=== PATIENT | male | born 1930 | race African-American/Black ===

== ENCOUNTER 2016-07-23 12:04 | Outpatient (CLI) | payer MEDICARE ==
[2016-07-23 16:01] LABS: Anion Gap 15 mmol/L (10-20); BUN (Urea Nitrogen) 39 mg/dL (8.4-25.7); Calc. Creatinine Clearance 0 mL/min (70-130); Calcium 9.1 mg/dL (7.8-10.44); Carbon Dioxide 23 mmol/L (23-31); Chloride 101 mmol/L (98-107); Estimated GFR-MDRD 54
[2016-07-23 16:11] LABS: #Basophils 0.1 thou/uL (0.0-0.2); #Eosinphils 0.1 thou/uL (0.0-0.7); #Lymphocytes 1.4 thou/uL (1.20-3.40); #Monocytes 0.5 thou/uL (0.11-0.59); #Neutrophils 2.5 thou/uL (1.40-6.50); %Basophils 1.2 % (0.0-1.0); %Eosinophils 2.6 % (0.0-10.0); %Lymphocytes 30.9 % (21.0-51.0); Hematocrit 32.7 % (42.0-52.0); Mean Platelet Volume 8.5 fL (7.4-10.4); Red Blood Cell (RBC) Count 3.24 mill/uL (4.70-6.10); White Blood Cell (WBC) Count 4.5 thou/uL (4.8-10.8)
== END 2016-07-23 12:05 | disposition home or self-care (01) ==
LOC: NAV LABSP 12:04
PROVIDERS: ATTEND Internal Medicine
DX: I10 Essential (primary) hypertension (principal); E10.9 Type 1 diabetes mellitus without complications
CPT/HCPCS: 36415; 80048; 85025

== ENCOUNTER 2016-08-12 12:43 | Outpatient (CLI) | payer MEDICARE ==
[2016-08-12 13:52] LABS: Anion Gap 12 mmol/L (10-20); BUN (Urea Nitrogen) 43 mg/dL (8.4-25.7); Calc. Creatinine Clearance 0 mL/min (70-130); Carbon Dioxide 27 mmol/L (23-31); Chloride 108 mmol/L (98-107); Estimated GFR-MDRD 52
[2016-08-12 15:02] LABS: Band 1 % (5-11); Hematocrit 32.9 % (42.0-52.0); Mean Platelet Volume 9.5 fL (7.4-10.4); Neutrophil 63 % (42-75); Reactive Lymphocytes 1 % (0-10); Red Blood Cell (RBC) Count 3.22 mill/uL (4.70-6.10); White Blood Cell (WBC) Count 4.9 thou/uL (4.8-10.8)
== END 2016-08-12 12:44 | disposition home or self-care (01) ==
LOC: NAV LABSP 12:43
PROVIDERS: ATTEND Internal Medicine
DX: E10.9 Type 1 diabetes mellitus without complications (principal); I10 Essential (primary) hypertension
CPT/HCPCS: 36415; 80048; 85025

== ENCOUNTER 2016-09-17 10:58 | Outpatient (CLI) | payer MEDICARE ==
[2016-09-17 13:05] LABS: ALT (SGPT) 10 U/L (0-55); AST (SGOT) 11 U/L (5-34); Albumin 3.3 g/dL (3.4-4.8); Alkaline Phosphatase 55 U/L (40-150); Anion Gap 14 mmol/L (10-20); BUN (Urea Nitrogen) 44 mg/dL (8.4-25.7); Bilirubin, Direct 0.1 mg/dL (0.1-0.3); Bilirubin, Total 0.2 mg/dL (0.2-1.2); Calc. Creatinine Clearance 0 mL/min (70-130); Calcium 8.6 mg/dL (7.8-10.44); Carbon Dioxide 27 mmol/L (23-31); Cardiac Risk 6.8 (Less than 4.5); Chloride 105 mmol/L (98-107); Cholesterol 171 mg/dL (< 200 Desired); Estimated GFR-MDRD 52; Globulin 3.3 g/dL (2.4-3.5); Glucose 96 mg/dL (83-110); HDL Cholesterol 25 mg/dL (>60 Neg Risk); LDL Cholesterol, Calculated 131 mg/dL; Potassium 4.9 mmol/L (3.5-5.1); Protein, Total 6.6 g/dL (5.8-8.1); Sodium 141 mmol/L (136-145); Triglycerides 77 mg/dL (Less than 150)
[2016-09-17 13:07] LABS: Hemoglobin A1c 5.8 % (4.0-6.0)
[2016-09-17 13:42] LABS: Hemoglobin 9.7 g/dL (14.0-18.0); MDiff Complete? YES; Mean Corpuscular HGB CONC 32.8 g/dL (32.0-36.0); Mean Platelet Volume 9.9 fL (7.4-10.4); Platelet Count 133 thou/uL (130-400); RBC Distribution Width 11.8 % (11.5-14.5); Red Blood Cell (RBC) Count 2.85 mill/uL (4.70-6.10); White Blood Cell (WBC) Count 4.7 thou/uL (4.8-10.8)
[2016-09-17 13:43] LABS: Anisocytosis SLIGHT = 6-15 cells (100X) (0-5/hpf); Band 1 % (5-11); Hypochromia SLIGHT = 6-15 cells (100X) (0-5/hpf); Lymphocytes 32 % (21-51); Macrocytosis SLIGHT = 6-15 cells (100X) (0-5/hpf); Monocytes 8 % (0-10); Neutrophil 59 % (42-75); PLT Morphology Comment Appears Adequate
== END 2016-09-17 10:59 | disposition home or self-care (01) ==
LOC: NAV LABSP 10:58
PROVIDERS: ATTEND Internal Medicine
DX: E10.9 Type 1 diabetes mellitus without complications (principal); I10 Essential (primary) hypertension
CPT/HCPCS: 36415; 80053; 80061; 82248; 83036; 84443; 85025

== ENCOUNTER 2016-09-23 07:29 | Outpatient (CLI) | payer MEDICARE ==
[2016-09-23 09:44] LABS: ALT (SGPT) 10 U/L (0-55); AST (SGOT) 11 U/L (5-34); Albumin 3.4 g/dL (3.4-4.8); Alkaline Phosphatase 69 U/L (40-150); Anion Gap 15 mmol/L (10-20); BUN (Urea Nitrogen) 48 mg/dL (8.4-25.7); Bilirubin, Total 0.2 mg/dL (0.2-1.2); Calc. Creatinine Clearance 0 mL/min (70-130); Calcium 8.9 mg/dL (7.8-10.44); Carbon Dioxide 27 mmol/L (23-31); Chloride 101 mmol/L (98-107); Estimated GFR-MDRD 50; Globulin 2.9 g/dL (2.4-3.5); Glucose 91 mg/dL (83-110); Potassium 5.5 mmol/L (3.5-5.1); Protein, Total 6.3 g/dL (5.8-8.1); Sodium 137 mmol/L (136-145)
== END 2016-09-23 07:30 | disposition home or self-care (01) ==
LOC: NAV LABSP 07:29
PROVIDERS: ATTEND Internal Medicine
DX: E11.9 Type 2 diabetes mellitus without complications (principal); I10 Essential (primary) hypertension
CPT/HCPCS: 36415; 80053

== ENCOUNTER 2016-10-14 16:03 | Outpatient (CLI) | payer MEDICARE ==
[2016-10-14 19:22] LABS: Anion Gap 15 mmol/L (10-20); BUN (Urea Nitrogen) 52 mg/dL (8.4-25.7); Calc. Creatinine Clearance 0 mL/min (70-130); Calcium 8.6 mg/dL (7.8-10.44); Carbon Dioxide 23 mmol/L (23-31); Chloride 103 mmol/L (98-107); Estimated GFR-MDRD 44; Glucose 85 mg/dL (83-110); Potassium 5.4 mmol/L (3.5-5.1); Sodium 136 mmol/L (136-145)
[2016-10-14 21:42] LABS: Eosinophils 4 % (0-10); Hemoglobin 9.6 g/dL (14.0-18.0); Hypochromia SLIGHT = 6-15 cells (100X) (0-5/hpf); Lymphocytes 22 % (21-51); MDiff Complete? YES; Macrocytosis SLIGHT = 6-15 cells (100X) (0-5/hpf); Mean Corpuscular HGB CONC 32.3 g/dL (32.0-36.0); Mean Corpuscular Hemoglobin 32.4 pg (27.0-31.0); Mean Platelet Volume 10.1 fL (7.4-10.4); Monocytes 3 % (0-10); Neutrophil 70 % (42-75); PLT Morphology Comment Appears Decreased; Platelet Count 105 thou/uL (130-400); RBC Distribution Width 11.8 % (11.5-14.5); Red Blood Cell (RBC) Count 2.97 mill/uL (4.70-6.10); White Blood Cell (WBC) Count 5.9 thou/uL (4.8-10.8)
== END 2016-10-14 16:04 | disposition home or self-care (01) ==
LOC: NAV LABSP 16:03
PROVIDERS: ATTEND Internal Medicine
DX: E10.9 Type 1 diabetes mellitus without complications (principal); I10 Essential (primary) hypertension
CPT/HCPCS: 36415; 80048; 85025

== ENCOUNTER 2016-11-15 15:02 | Outpatient (CLI) | payer MEDICARE ==
[2016-11-15 16:10] LABS: Anion Gap 17 mmol/L (10-20); BUN (Urea Nitrogen) 60 mg/dL (8.4-25.7); Calc. Creatinine Clearance 0 mL/min (70-130); Calcium 8.6 mg/dL (7.8-10.44); Carbon Dioxide 21 mmol/L (23-31); Chloride 105 mmol/L (98-107); Estimated GFR-MDRD 40; Glucose 132 mg/dL (83-110); Potassium 4.9 mmol/L (3.5-5.1); Sodium 138 mmol/L (136-145)
[2016-11-15 17:11] LABS: #Eosinphils 0.1 thou/uL (0.0-0.7); #Lymphocytes 1.1 thou/uL (1.20-3.40); #Monocytes 0.5 thou/uL (0.11-0.59); #Neutrophils 2.8 thou/uL (1.40-6.50); %Basophils 0.7 % (0.0-1.0); %Eosinophils 2.5 % (0.0-10.0); %Lymphocytes 24.2 % (21.0-51.0); %Neutrophils 62.5 % (42.0-75.0); Hemoglobin 9.9 g/dL (14.0-18.0); Mean Corpuscular HGB CONC 32.4 g/dL (32.0-36.0); Mean Corpuscular Hemoglobin 32.3 pg (27.0-31.0); Mean Corpuscular Volume 99.8 fl (80.0-94.0); Mean Platelet Volume 9.4 fL (7.4-10.4); Platelet Count 107 thou/uL (130-400); RBC Distribution Width 12.1 % (11.5-14.5); Red Blood Cell (RBC) Count 3.05 mill/uL (4.70-6.10); White Blood Cell (WBC) Count 4.5 thou/uL (4.8-10.8)
== END 2016-11-15 15:03 | disposition home or self-care (01) ==
LOC: NAV LABSP 15:02
PROVIDERS: ATTEND Internal Medicine
DX: E10.9 Type 1 diabetes mellitus without complications (principal); I10 Essential (primary) hypertension
CPT/HCPCS: 80048; 85025

== ENCOUNTER 2016-12-12 10:56 | Outpatient (CLI) | payer MEDICARE ==
[2016-12-12 12:41] LABS: #Eosinphils 0.1 thou/uL (0.0-0.7); #Monocytes 0.4 thou/uL (0.11-0.59); #Neutrophils 2.8 thou/uL (1.40-6.50); %Basophils 0.7 % (0.0-1.0); %Eosinophils 2.8 % (0.0-10.0); %Lymphocytes 22.3 % (21.0-51.0); %Monocytes 9.9 % (0.0-10.0); %Neutrophils 64.3 % (42.0-75.0); Hemoglobin 9.6 g/dL (14.0-18.0); Mean Corpuscular HGB CONC 32.8 g/dL (32.0-36.0); Mean Corpuscular Hemoglobin 32.4 pg (27.0-31.0); Mean Platelet Volume 8.4 fL (7.4-10.4); Platelet Count 138 thou/uL (130-400); RBC Distribution Width 11.8 % (11.5-14.5); Red Blood Cell (RBC) Count 2.97 mill/uL (4.70-6.10); White Blood Cell (WBC) Count 4.4 thou/uL (4.8-10.8)
[2016-12-12 12:48] LABS: Anion Gap 16 mmol/L (10-20); BUN (Urea Nitrogen) 52 mg/dL (8.4-25.7); Calc. Creatinine Clearance 0 mL/min (70-130); Calcium 8.8 mg/dL (7.8-10.44); Carbon Dioxide 23 mmol/L (23-31); Chloride 104 mmol/L (98-107); Estimated GFR-MDRD 53; Glucose 99 mg/dL (83-110); Potassium 5.2 mmol/L (3.5-5.1); Sodium 138 mmol/L (136-145)
== END 2016-12-12 10:57 | disposition home or self-care (01) ==
LOC: NAV LABSP 10:56
PROVIDERS: ATTEND Internal Medicine
DX: E10.9 Type 1 diabetes mellitus without complications (principal); I10 Essential (primary) hypertension
CPT/HCPCS: 36415; 80048; 85025

== ENCOUNTER 2017-01-15 16:32 | Outpatient (CLI) | payer MEDICARE ==
[2017-01-15 21:04] LABS: Anion Gap 17 mmol/L (10-20); BUN (Urea Nitrogen) 58 mg/dL (8.4-25.7); Calc. Creatinine Clearance 0 mL/min (70-130); Calcium 8.8 mg/dL (7.8-10.44); Carbon Dioxide 21 mmol/L (23-31); Chloride 104 mmol/L (98-107); Estimated GFR-MDRD 49; Glucose 143 mg/dL (83-110); Potassium 4.8 mmol/L (3.5-5.1); Sodium 137 mmol/L (136-145)
[2017-01-15 23:11] LABS: Eosinophils 3 % (0-10); Hemoglobin 9.9 g/dL (14.0-18.0); Hypochromia SLIGHT = 6-15 cells (100X) (0-5/hpf); Lymphocytes 37 % (21-51); MDiff Complete? YES; Macrocytosis SLIGHT = 6-15 cells (100X) (0-5/hpf); Mean Corpuscular HGB CONC 31.3 g/dL (32.0-36.0); Mean Corpuscular Hemoglobin 31.5 pg (27.0-31.0); Mean Platelet Volume 8.7 fL (7.4-10.4); Monocytes 5 % (0-10); Neutrophil 55 % (42-75); PLT Morphology Comment Appears Decreased; Platelet Count 115 thou/uL (130-400); RBC Distribution Width 12.2 % (11.5-14.5); Red Blood Cell (RBC) Count 3.13 mill/uL (4.70-6.10); White Blood Cell (WBC) Count 4.9 thou/uL (4.8-10.8)
== END 2017-01-15 16:33 | disposition home or self-care (01) ==
LOC: NAV LABSP 16:32
PROVIDERS: ATTEND Internal Medicine
DX: E10.9 Type 1 diabetes mellitus without complications (principal); I10 Essential (primary) hypertension
CPT/HCPCS: 36415; 80048; 85025

== ENCOUNTER 2017-02-11 14:05 | Outpatient (CLI) | payer MEDICARE ==
[2017-02-11 16:19] LABS: Anion Gap 13 mmol/L (10-20); BUN (Urea Nitrogen) 38 mg/dL (8.4-25.7); Calc. Creatinine Clearance 0 mL/min (70-130); Calcium 8.7 mg/dL (7.8-10.44); Carbon Dioxide 26 mmol/L (23-31); Chloride 103 mmol/L (98-107); Estimated GFR-MDRD 62; Glucose 89 mg/dL (83-110); Potassium 4.6 mmol/L (3.5-5.1); Sodium 137 mmol/L (136-145)
[2017-02-11 21:15] LABS: #Eosinphils 0.1 thou/uL (0.0-0.7); #Lymphocytes 1.1 thou/uL (1.20-3.40); #Monocytes 0.6 thou/uL (0.11-0.59); #Neutrophils 2.9 thou/uL (1.40-6.50); %Eosinophils 2.5 % (0.0-10.0); %Lymphocytes 23.4 % (21.0-51.0); %Monocytes 11.8 % (0.0-10.0); %Neutrophils 61.3 % (42.0-75.0); Hemoglobin 9.9 g/dL (14.0-18.0); Mean Corpuscular HGB CONC 32.2 g/dL (32.0-36.0); Mean Corpuscular Hemoglobin 32.2 pg (27.0-31.0); Mean Corpuscular Volume 99.9 fl (80.0-94.0); Mean Platelet Volume 9.4 fL (7.4-10.4); Platelet Count 107 thou/uL (130-400); RBC Distribution Width 11.5 % (11.5-14.5); Red Blood Cell (RBC) Count 3.07 mill/uL (4.70-6.10); White Blood Cell (WBC) Count 4.7 thou/uL (4.8-10.8)
== END 2017-02-11 14:06 | disposition home or self-care (01) ==
LOC: NAV LABSP 14:05
PROVIDERS: ATTEND Internal Medicine
DX: E10.9 Type 1 diabetes mellitus without complications (principal); I10 Essential (primary) hypertension
CPT/HCPCS: 36415; 80048; 85025

== ENCOUNTER 2017-02-25 11:40 | Outpatient (CLI) | payer MEDICARE ==
[2017-02-25 13:30] LABS: Bilirubin Negative (Negative); Blood, Urine Negative (Negative); Clarity Clear (Clear); Glucose, Urine (Dipstick) Negative (Negative); Leukocyte Negative (Negative); Nitrite Negative (Negative); Protein, Urine (Dipstick) Negative (Neg-Trace); Urobilinogen 0.2 mg/dL (0.2-1.0)
[2017-02-25 13:35] LABS: Bacteria/HPF Rare-Few HPF (None Seen); RBC/HPF 0-3 HPF (0-3); Squamous Epithelial 0-3 HPF (0-3); WBC/HPF 0-3 HPF (0-3)
== END 2017-02-25 11:41 | disposition home or self-care (01) ==
LOC: NAV LABSP 11:40
PROVIDERS: ATTEND Internal Medicine
DX: R41.82 Altered mental status, unspecified (principal); I10 Essential (primary) hypertension; E10.9 Type 1 diabetes mellitus without complications
CPT/HCPCS: 81001; 87086

== ENCOUNTER 2017-02-25 12:52 | Outpatient (CLI) | payer MEDICARE, OTHER ==
--- NOTE | 2017-02-25 16:23 | CT ---
CT CHEST NONCONTRAST 02/25/17 HISTORY: Chest pain. Right upper lobe atelectasis. COMPARISON: 02/10/07 FINDINGS: There is mild atelectasis at each lung base. No lobar consolidation, parenchymal mass, pleural fluid , or pneumothorax are evident. Lack of contrast limits evaluation of the mediastinum. There are post operative changes and arterial calcifications. No bulky adenopathy is apparent. Small hiatal hernia is noted. Within the partially visualized upper abdomen, cysts are present within the liver parenchy ma. There are hyperdense stones in the dependent portion of the gallbladder lumen. IMPRESSION: 1. Mild bibasilar lung atelectasis. No obstructing lesion is apparent. 2. Atherosclerosis. 3. Cholelithiasis. POS: RUFINO
== END 2017-02-25 12:53 | disposition home or self-care (01) ==
LOC: NAV CT 12:52
PROVIDERS: ATTEND Internal Medicine
DX: J98.11 Atelectasis (principal); I10 Essential (primary) hypertension; E10.9 Type 1 diabetes mellitus without complications; I70.90 Unspecified atherosclerosis; K80.20 Calculus of gallbladder without cholecystitis without obstruction
CPT/HCPCS: 71250

== ENCOUNTER 2017-03-18 12:27 | Outpatient (CLI) | payer MEDICARE, OTHER ==
[2017-03-18 15:55] LABS: ALT (SGPT) 8 U/L (8-55); AST (SGOT) 11 U/L (5-34); Albumin 3.8 g/dL (3.4-4.8); Alkaline Phosphatase 67 U/L (40-150); Anion Gap 19 mmol/L (10-20); BUN (Urea Nitrogen) 31 mg/dL (8.4-25.7); Bilirubin, Direct 0.1 mg/dL (0.1-0.3); Bilirubin, Total 0.3 mg/dL (0.2-1.2); Calc. Creatinine Clearance 0 mL/min (70-130); Calcium 9.3 mg/dL (7.8-10.44); Carbon Dioxide 21 mmol/L (23-31); Cardiac Risk 7.1 (Less than 4.5); Chloride 103 mmol/L (98-107); Cholesterol 219 mg/dl (< 200 Desired); Estimated GFR-MDRD 58; Glucose 100 mg/dL (83-110); HDL Cholesterol 31 mg/dL (>60 Neg Risk); LDL Cholesterol, Calculated 170 mg/dL; Potassium 4.7 mmol/L (3.5-5.1); Protein, Total 7.4 g/dL (5.8-8.1); Sodium 138 mmol/L (136-145); Triglycerides 90 mg/dL (Less than 150)
[2017-03-18 17:00] LABS: Hemoglobin A1c 5.5 % (4.0-6.0)
[2017-03-18 17:11] LABS: #Eosinphils 0.1 thou/uL (0.0-0.7); #Lymphocytes 1.1 thou/uL (1.20-3.40); #Monocytes 0.5 thou/uL (0.11-0.59); #Neutrophils 3.2 thou/uL (1.40-6.50); %Eosinophils 2.3 % (0.0-10.0); %Lymphocytes 21.7 % (21.0-51.0); %Monocytes 10.9 % (0.0-10.0); %Neutrophils 64.2 % (42.0-75.0); Hemoglobin 10.8 g/dL (14.0-18.0); Mean Corpuscular HGB CONC 31.9 g/dL (32.0-36.0); Mean Platelet Volume 9.4 fL (7.4-10.4); Platelet Count 114 thou/uL (130-400); RBC Distribution Width 11.7 % (11.5-14.5); Red Blood Cell (RBC) Count 3.39 mill/uL (4.70-6.10)
== END 2017-03-18 12:28 | disposition home or self-care (01) ==
LOC: NAV LABSP 12:27
PROVIDERS: ATTEND Internal Medicine
DX: E10.9 Type 1 diabetes mellitus without complications (principal); I10 Essential (primary) hypertension
CPT/HCPCS: 36415; 80048; 80061; 80076; 83036; 84443; 85025

== ENCOUNTER 2017-05-09 14:32 | Outpatient (CLI) | payer MEDICARE, OTHER ==
[2017-05-09 15:01] LABS: Anion Gap 17 mmol/L (10-20); BUN (Urea Nitrogen) 29 mg/dL (8.4-25.7); Calc. Creatinine Clearance 0 mL/min (70-130); Calcium 8.8 mg/dL (7.8-10.44); Carbon Dioxide 23 mmol/L (23-31); Chloride 103 mmol/L (98-107); Estimated GFR-MDRD 53; Glucose 175 mg/dL (83-110); Potassium 4.5 mmol/L (3.5-5.1); Sodium 138 mmol/L (136-145)
[2017-05-09 15:26] LABS: #Eosinphils 0.2 thou/uL (0.0-0.7); #Monocytes 0.7 thou/uL (0.11-0.59); %Basophils 0.9 % (0.0-1.0); %Eosinophils 3.5 % (0.0-10.0); %Lymphocytes 20.2 % (21.0-51.0); %Monocytes 13.6 % (0.0-10.0); %Neutrophils 61.9 % (42.0-75.0); Hemoglobin 11.2 g/dL (14.0-18.0); Mean Corpuscular HGB CONC 30.9 g/dL (32.0-36.0); Mean Platelet Volume 11.2 fL (7.4-10.4); Platelet Count 115 thou/uL (130-400); RBC Distribution Width 12.4 % (11.5-14.5); White Blood Cell (WBC) Count 4.8 thou/uL (4.8-10.8)
== END 2017-05-09 14:33 | disposition home or self-care (01) ==
LOC: NAV LABSP 14:32
PROVIDERS: ATTEND Internal Medicine
DX: F32.9 Major depressive disorder, single episode, unspecified (principal); I10 Essential (primary) hypertension; E11.9 Type 2 diabetes mellitus without complications; E61.9 Deficiency of nutrient element, unspecified
CPT/HCPCS: 36415; 80048; 85025

== ENCOUNTER 2017-10-01 16:46 | Inpatient (IN) | payer MEDICARE ==
[2017-10-01] MEDS ORDERED: Acetaminophen 325 MG TAB PO PRN ×2 (17:57)
[2017-10-01] MEDS ORDERED: Loperamide HCl 2 MG CAP PO PRN (18:17)
[2017-10-01] MEDS ORDERED: Sodium Chloride 0.9% 10 ML ONE (19:00)
[2017-10-01] MEDS: Apixaban 5 MG TAB PO SCH (20:14)
[2017-10-01] MEDS: Amlodipine 10 MG TAB PO SCH (20:14)
[2017-10-01] MEDS: Simethicone Chewable 80 MG TAB PO SCH (20:15)
[2017-10-01] MEDS: Carvedilol 25 MG TAB PO SCH (20:15)
[2017-10-01 21:19] LABS: Bilirubin Negative (Negative); Blood, Urine Moderate (Negative); Glucose, Urine (Dipstick) Negative (Negative); Leukocyte Large (Negative); Nitrite Negative (Negative); Protein, Urine (Dipstick) > or equal to 300 mg/dL (Neg-Trace); Urobilinogen 0.2 mg/dL (0.2-1.0)
[2017-10-01 21:35] LABS: Bacteria/HPF 4+ HPF (None Seen); Clarity Cloudy (Clear)
[2017-10-01 21:54] VITALS: BMI 23.3
[2017-10-02 07:20] LABS: BUN (Urea Nitrogen) 39 mg/dL (8.4-25.7); Calc. Creatinine Clearance 31 mL/min (70-130); Carbon Dioxide 24 mmol/L (23-31); Chloride 108 mmol/L (98-107); Estimated GFR-MDRD 41; Potassium 5.9 mmol/L (3.5-5.1); Sodium 138 mmol/L (136-145)
[2017-10-02 07:21] LABS: Calcium 9.2 mg/dL (7.8-10.44); Glucose 76 mg/dL (83-110)
[2017-10-02 07:22] LABS: Anion Gap 12 mmol/L (10-20)
[2017-10-02 07:23] LABS: Hemoglobin 8.5 g/dL (14.0-18.0); Mean Corpuscular HGB CONC 32.6 g/dL (32.0-36.0); Mean Corpuscular Hemoglobin 32.1 pg (27.0-31.0); Mean Corpuscular Volume 98.5 fL (80.0-94.0); Mean Platelet Volume 9.1 fL (7.4-10.4); Platelet Count 125 thou/uL (130-400); RBC Distribution Width 12.8 % (11.5-14.5); Red Blood Cell (RBC) Count 2.66 mill/uL (4.70-6.10)
[2017-10-02 07:24] LABS: #Eosinphils 0.1 thou/uL (0.0-0.7); #Monocytes 0.5 thou/uL (0.11-0.59); #Neutrophils 2.3 thou/uL (1.40-6.50); %Basophils 0.8 % (0.0-1.0); %Eosinophils 2.4 % (0.0-10.0); %Lymphocytes 26.1 % (21.0-51.0); %Monocytes 12.3 % (0.0-10.0); %Neutrophils 58.4 % (42.0-75.0); Hypochromia SLIGHT = 6-15 cells (100X) (0-5/hpf); MDiff Complete? YES
[2017-10-02 07:25] LABS: PLT Morphology Comment Appears Adequate; Spherocytes SLIGHT = 1-5 cells (100X) (None Seen)
[2017-10-02] MEDS: Sodium Chloride 0.9% 1,000 ML IV SCH (08:41)
--- NOTE | 2017-10-02 10:31 | HP ---
DATE OF ADMISSION: 10/01/2017 CHIEF COMPLAINT: Resistant Escherichia coli urinary tract infection, chronic kidney disease stage 3. HISTORY OF PRESENT ILLNESS: The patient is a very pleasant 87-year-old black male living at the [facility] with multiple medical problems including coronary artery disease, peripheral vascular diseas e, hypertension with subsequent chronic kidney disease stage 3 with recent exacerbation in the hospit al several months ago for acute on chronic renal failure secondary to significant diarrhea associated with poor oral intake, this was found to be due to Clostridium difficile. He has responded to IV fl uids and he has [facility] since that time and has been forcing fluids and has had a stable creatinine around 1.4-1.7. He has had fairly good urine output, but it has been noticed to have foul-smelling urine prior to admission and subsequent culture was done, which showed E. coli wh ich was resistant to SULFA DRUGS, resistant to QUINOLONES and as he is unable to take Macrodantin sec ondary to renal function, he is only able to take IV antibiotics and therefore he is admitted to the hospital for IV gentamicin. He denies any nausea or vomiting at this time and apparently is eating f airly well. He has had no fever or chills. He has had no diarrhea output from his colostomy. The p atient does have a history of partial colectomy for cancer of the colon many years ago with colostomy . PAST MEDICAL HISTORY: Also remarkable for benign prostatic hypertrophy, severe degenerative joint di sease, distant deep venous thrombosis, pulmonary embolus with recurrence and now on prophylactic anti coagulation, recent episode of Clostridium difficile colitis, coronary artery disease. PAST SURGICAL HISTORY: Positive for coronary artery bypass surgery many years ago, above-mentioned c olostomy, left [id number] amputation. SOCIAL HISTORY: He is a , lives at the prison. He is a nonsmoker, nondrinker. FAMILY MEDICAL HISTORY: He has multiple daughters with hypertension. ALLERGIES: He has no known allergies. REVIEW OF SYSTEMS: HEENT: He denies any headaches, dizziness, change in vision or hearing, hoarsene ss or dysphagia. Pulmonary: He denies any cough, shortness of breath, chest pain or respiratory dis tress. Cardiovascular: He denies any chest pain, orthopnea, paroxysmal nocturnal dyspnea or edema. Gastrointestinal: He denies any nausea, vomiting, abdominal pain. Genitourinary: See history of present illness. He denies any dysuria, hematuria, incontinence. Musculoskeletal: He is essentially bedridden secondary to his left AKA, degenerative joint disease. He denies any significant pain. Neurologic: He denies localized numbness or weakness in arms or ex tremities, but has diffuse weakness. PHYSICAL EXAMINATION: GENERAL: Patient is an elderly black male, alert, oriented, lucid, in no distress. VITAL SIGNS: Blood pressure 134/61, O2 saturation is 96%, respirations 20, temperature is 98. HEENT: Pupils are equal, round, and react to light and accommodation. Sclerae pale, conjunctivae pa le. Oral mucous membrane slightly hydrated. NECK: Supple. There are no nodes or masses. JVP is not elevated. LUNGS: Show decreased breath sounds in the bases, but no rales or rhonchi. CARDIAC: Shows PMI in the fifth intercostal space midclavicular line and S4. No other gallops or mu rmurs. ABDOMEN: Soft, nontender with no masses or organomegaly. There is a well functioning colostomy. MUSCULOSKELETAL: Left above knee amputation. There is no edema, clubbing, cyanosis. There is marke d stiffness, decreased range of motion of joints of the hands, wrist, elbows, hips and knees. NEUROLOGIC: Cranial nerves intact. Deep tendon reflex 2+ and equal. There are absent Babinskis. LABORATORY DATA: Urinalysis did show greater than 50 white cells, 4+ bacteria and culture as mention ed above showed E. coli sensitive only to IV/IM cephalosporins and aminoglycosides. White count is 4 700, hematocrit 29, hemoglobin 9, sodium 137, potassium 6.0, chloride 106, bicarbonate 25, BUN 43, cr eatinine 1.94, GFR 40. ASSESSMENT AND PLAN: An 87-year-old black male with history of multiple medical problems including c hronic kidney disease, hypertension, coronary artery disease, peripheral vascular disease, and degene rative joint disease making him essentially bedridden, who has had problems with poor oral intake at the prison and has developed resistant urinary tract infection requiring IV antibiotics, he is unable to take Nitrofurantoin secondary to renal function and unable to take Bactrim, Cipro or oral p enicillin secondary to resistant. He will be therefore admitted to the hospital and started on IV ge ntamicin 70 mg q.24 hours, have repeat base met profile in the a.m. and started on normal saline at 5 0 mL an hour and will be continued on his previous medications of Isordil, isosorbide mononitrate for his coronary artery disease, amlodipine 10 mg daily, and carvedilol 25 twice daily for his hypertens ion and coronary artery disease, Apixaban 2.5 twice daily for cause of his recurrent pulmonary embolu s, Protonix 40 daily for recurrent reflux, peptic ulcer disease. He will have repeat urine culture d one and will obtain 7 weeks of antibiotics either IV or oral depending on repeat culture.
[2017-10-02] MEDS: Apixaban 5 MG TAB PO SCH ×2 (13:41→19:59)
[2017-10-02] MEDS: Citalopram 20 MG TAB PO SCH (13:42)
[2017-10-02] MEDS: Multivitamin W/ Minerals 1 TAB PO SCH (13:42)
[2017-10-02] MEDS: Famotidine 20 MG TAB PO SCH (13:42)
[2017-10-02] MEDS: Simethicone Chewable 80 MG TAB PO SCH ×3 (13:43→20:00)
[2017-10-02] MEDS ORDERED: Carvedilol 25 MG TAB PO SCH (13:45)
[2017-10-02] MEDS ORDERED: Apixaban 5 MG TAB PO SCH (13:45)
[2017-10-02] MEDS ORDERED: Citalopram 20 MG TAB PO SCH (13:45)
[2017-10-02] MEDS ORDERED: Famotidine 20 MG TAB PO SCH (14:00)
[2017-10-02] MEDS ORDERED: Multivitamin W/ Minerals 1 TAB PO SCH (14:00)
[2017-10-02] MEDS ORDERED: Simethicone Chewable 80 MG TAB PO SCH (14:00)
[2017-10-02] MEDS: Carvedilol 25 MG TAB PO SCH ×2 (16:46→17:37)
[2017-10-02] MEDS: Amlodipine 10 MG TAB PO SCH (19:59)
--- NOTE | 2017-10-02 20:22 | PRG ---
DATE OF SERVICE: 10/02/2017 SUBJECTIVE: The patient feels well, lying in bed, resting with no complaints of shortness of breath, chest pain, nausea, and vomiting, fever or chills. OBJECTIVE: VITAL SIGNS: Temperature is 98, pulse 72, respirations 18, O2 sats 97% on room air. LUNGS: Clear. CARDIAC: Showed regular rhythm. ABDOMEN: Soft and nontender. LABORATORY DATA: Shows white count 4000, hematocrit 26, hemoglobin 8.5. Sodium 138, potassium 5.9, chloride 108, bicarbonate 24, BUN 39, creatinine 1.89, glucose 76, calcium 9.2. Gentamicin random tr [facility] level was 0.8 on 70 mg of gentamicin daily. ASSESSMENT: 1. Resistant Escherichia coli infection on gentamicin with therapeutic level. 2. Severe peripheral vascular disease with abrasion of the toe with culture pending. We will evalua te and consult Wound Care. 3. Coronary artery disease, asymptomatic. 4. Recurrent deep venous thrombosis, controlled on Eliquis. PLAN: Increase gentamicin 80 mg daily because of therapeutic trough level. Obtain results of wound and urine culture. Continue gentle hydration and check base met profile in the a.m.
[2017-10-03] MEDS: Sodium Chloride 0.9% 1,000 ML IV SCH (05:30)
[2017-10-03 05:51] LABS: Anion Gap 13 mmol/L (10-20); BUN (Urea Nitrogen) 36 mg/dL (8.4-25.7); Calc. Creatinine Clearance 33 mL/min (70-130); Carbon Dioxide 21 mmol/L (23-31); Chloride 108 mmol/L (98-107); Estimated GFR-MDRD 44; Glucose 63 mg/dL (83-110); Sodium 136 mmol/L (136-145)
[2017-10-03] MEDS: Simethicone Chewable 80 MG TAB PO SCH ×3 (08:27→20:32)
[2017-10-03] MEDS: Apixaban 5 MG TAB PO SCH ×2 (08:27→20:31)
[2017-10-03] MEDS: Citalopram 20 MG TAB PO SCH (08:28)
[2017-10-03] MEDS: Multivitamin W/ Minerals 1 TAB PO SCH (08:28)
[2017-10-03] MEDS: Famotidine 20 MG TAB PO SCH (08:28)
[2017-10-03] MEDS: Carvedilol 25 MG TAB PO SCH ×2 (08:29→17:48)
--- NOTE | 2017-10-03 14:41 | PRG ---
DATE OF SERVICE: 10/03/2017 SUBJECTIVE: The patient feels well, lying in bed, being fed by the daughter with no complaints of sh ortness of breath, chest pain, nausea, vomiting, weakness, abdominal pain. OBJECTIVE: EXTREMITIES: Right foot shows ulcer over the first MTP joint with eschar being debrided. LUNGS: Cl ear. CARDIAC: Examination shows regular rhythm. ABDOMEN: Soft, nontender. VITAL SIGNS: Show a blood pressure of 154/68, respirations 21, O2 sats 96%, pulse 76, afebrile. LABORATORY DATA: Sodium 136, potassium 6.0, chloride 108, bicarbonate 21, BUN 36, creatinine 1.78. Microbiology shows urine culture with presumptive E. coli still growing, bacterial culture from right MTP ulcer with gram negative isaias. ASSESSMENT: 1. Escherichia coli urinary tract infection on gentamicin with therapeutic levels. No evidence of s epsis. 2. Chronic kidney disease stage 3, slowly improving with IV fluids. We will continue with persisten t hyperkalemia. 3. Decubitus ulcer over right foot with gram negative isaias growing on gentamicin with wound care appe ars to be improving. 4. Peripheral vascular disease, severe, stable. 5. Coronary artery disease, asymptomatic. PLAN: 1. Continue IV normal saline at 50 mL an hour. Repeat base met in 3 days. 2. Continue gentamicin 80 mg daily. 3. Continue wound care to right foot.
[2017-10-03] MEDS: Gentamicin Sulfate 80 MG in Premix Bag 1 BAG IVPB SCH (20:27)
[2017-10-03] MEDS: Amlodipine 10 MG TAB PO SCH (20:31)
[2017-10-04] MEDS: Sodium Chloride 0.9% 1,000 ML IV SCH ×2 (03:36→14:13)
[2017-10-04 05:37] LABS: Hemoglobin 8.5 g/dL (14.0-18.0); Platelet Count 118 thou/uL (130-400)
[2017-10-04] MEDS: Multivitamin W/ Minerals 1 TAB PO SCH (08:01)
[2017-10-04] MEDS: Citalopram 20 MG TAB PO SCH (08:01)
[2017-10-04] MEDS: Famotidine 20 MG TAB PO SCH (08:02)
[2017-10-04] MEDS: Carvedilol 25 MG TAB PO SCH ×2 (08:02→17:19)
[2017-10-04] MEDS: Apixaban 5 MG TAB PO SCH ×2 (08:02→21:01)
[2017-10-04] MEDS: Simethicone Chewable 80 MG TAB PO SCH ×3 (08:02→21:01)
--- NOTE | 2017-10-04 11:37 | PRG ---
DATE OF SERVICE: 10/04/2017 SUBJECTIVE: Mr. Zamorano is awake and not in any distress. So discussed his case with his daughter. He denies any chest pain or shortness of breath. He denies any diarrhea. He denies any fever or ch ills. OBJECTIVE: VITAL SIGNS: He is afebrile, heart rate 70, respirations 18, oxygen saturation 97% on room air, bloo d pressure was elevated at 172/81 this morning prior to his blood pressure medications. CARDIOVASCULAR: S1 and S2 plus. RESPIRATORY: Normal vesicular breath sounds. ABDOMEN: Soft, nontender, bowel sounds heard in all quadrants. EXTREMITIES: Without cyanosis or clubbing. Trace edema. LABORATORY VALUES: H&H is 8.5 and 26.6. Urinalysis showed more than 50 WBCs per high power field an d 4+ bacteria. Urine culture is growing E. coli and it is sensitive to gentamicin. IMPRESSION: 1. Escherichia coli urinary tract infection, on gentamicin. 2. Chronic kidney disease, stage 3. 3. Peripheral vascular disease, stable, but severe. 4. Coronary artery disease without angina. 5. Decubitus ulcer in his right foot. 6. Depression. 7. Hypertension, fluctuating control. 8. Significant deconditioning. PLAN: 1. Continue IV antibiotics and gentle hydration. 2. Continue home medications. 3. Wound care. 4. DVT and stress ulcer prophylaxis. He is on Eliquis. 5. Decubitus precautions. 6. Nutritional support. 7. Recheck BMP. Dr. Botello has ordered it for Friday. 8. Discussed with daughter in detail. 9. Aspiration precautions. He is supposed to be on a pureed diet with crushed medications. Discuss ed with nursing.
[2017-10-04] MEDS: Gentamicin Sulfate 80 MG in Premix Bag 1 BAG IVPB SCH (20:21)
[2017-10-04] MEDS: Amlodipine 10 MG TAB PO SCH (21:01)
[2017-10-05] MEDS: Carvedilol 25 MG TAB PO SCH ×2 (10:13→17:26)
[2017-10-05] MEDS: Citalopram 20 MG TAB PO SCH (10:13)
[2017-10-05] MEDS: Multivitamin W/ Minerals 1 TAB PO SCH (10:14)
[2017-10-05] MEDS: Famotidine 20 MG TAB PO SCH (10:14)
[2017-10-05] MEDS: Simethicone Chewable 80 MG TAB PO SCH ×3 (10:14→20:08)
[2017-10-05] MEDS: Apixaban 5 MG TAB PO SCH ×2 (10:14→20:08)
--- NOTE | 2017-10-05 11:46 | PRG ---
DATE OF SERVICE: 10/05/2017 SUBJECTIVE: Mr. Zamorano is doing the same. Denies any complaints. Discussed with nursing. He bar es any chest pain or shortness of breath. Denies any lightheadedness, dizziness. Denies any nausea, vomiting or diarrhea. OBJECTIVE: VITAL SIGNS: He is afebrile, heart rate 65, respirations 20, oxygen saturation 98% on room air, bloo d pressure 169/88. CARDIOVASCULAR SYSTEM: S1, S2 plus. RESPIRATORY SYSTEM: Normal vesicular breath sounds. ABDOMEN: Soft, nontender, bowel sounds heard in all quadrants. EXTREMITIES: Without cyanosis or clubbing. Dressing over his right foot. IMPRESSION: 1. Escherichia coli urinary tract infection responding to gentamicin. 2. Chronic kidney disease stage 3. 3. Peripheral vascular disease with ulcer in his right foot. 4. Coronary artery disease without angina. 5. Hypertension, fluctuating control. PLAN: 1. Continue gentle hydration. 2. Continue IV gentamicin. 3. Wound care. 4. DVT and stress ulcer prophylaxis, he is on Eliquis. 5. Decubitus precautions. 6. Adjust blood pressure medications. 7. Aspiration precautions. 8. Dr. Botello back tonight.
[2017-10-05] MEDS: Sodium Chloride 0.9% 1,000 ML IV SCH (12:23)
[2017-10-05] MEDS: Amlodipine 10 MG TAB PO SCH (20:08)
[2017-10-05] MEDS: Gentamicin Sulfate 80 MG in Premix Bag 1 BAG IVPB SCH (20:10)
[2017-10-05] MEDS: hydrALAZINE 10 MG TAB PO SCH (20:48)
[2017-10-05] MEDS ORDERED: hydrALAZINE 25 MG TAB PO SCH (21:00)
[2017-10-06 05:32] LABS: Hemoglobin 8.7 g/dL (14.0-18.0); Platelet Count 109 thou/uL (130-400)
[2017-10-06 05:51] LABS: Anion Gap 12 mmol/L (10-20); BUN (Urea Nitrogen) 27 mg/dL (8.4-25.7); Calc. Creatinine Clearance 42 mL/min (70-130); Calcium 8.5 mg/dL (7.8-10.44); Carbon Dioxide 20 mmol/L (23-31); Chloride 111 mmol/L (98-107); Estimated GFR-MDRD 59; Glucose 71 mg/dL (83-110); Potassium 5.6 mmol/L (3.5-5.1); Sodium 137 mmol/L (136-145)
[2017-10-06 07:27] VITALS: BP 129/60; TEMP 98.5
[2017-10-06] MEDS: Citalopram 20 MG TAB PO SCH (09:06)
[2017-10-06] MEDS: hydrALAZINE 10 MG TAB PO SCH (09:06)
[2017-10-06] MEDS: Apixaban 5 MG TAB PO SCH (09:06)
[2017-10-06] MEDS: Carvedilol 25 MG TAB PO SCH (09:06)
[2017-10-06] MEDS: Multivitamin W/ Minerals 1 TAB PO SCH (09:07)
[2017-10-06] MEDS: Simethicone Chewable 80 MG TAB PO SCH (09:07)
[2017-10-06] MEDS: Famotidine 20 MG TAB PO SCH (09:08)
--- NOTE | 2017-10-08 07:47 | DIS ---
Transferred to the skilled unit 10/06/2017. FINAL DIAGNOSES: 1. Resistant Escherichia coli urinary tract infection. 2. Coronary artery disease. 3. Peripheral vascular disease. 4. Hypertension. 5. Chronic kidney disease stage 3 with acute on chronic renal failure exacerbation recently. 6. History of Clostridium difficile colitis. 7. Degenerative joint disease. 8. History of cancer of the colon, status post partial colectomy many years ago. 9. Coronary artery disease status post coronary bypass graft many years ago. 10. History of deep venous thrombosis and pulmonary embolus with recurrence, now on prophylactic ant icoagulation. 11. Severe degenerative joint disease, status post left above knee amputation. HOSPITAL COURSE: The patient is a very pleasant 87-year-old black male living in the [facility] be cause of multiple medical problems including coronary artery disease, hypertension, chronic kidney di sease stage 3, peripheral vascular disease who was found to have an E. coli urinary tract infection w hich was resistant to sulfa drugs and quinolones and as he was unable to take Macrodantin secondary t o his chronic kidney disease stage 3 he was felt to require admission to the hospital for IV aminogly cosides as this was unable to be given at the [facility]. On admission, his blood pressure was 134 /61, O2 sat was 96%, respirations 20, pulse was 98. Lungs were clear. Cardiac examination showed re gular rhythm. Abdomen was soft and nontender. Urinalysis showed greater than 50 white cells, 4+ jl teria. Culture showing E. coli sensitive only to IV or IM cephalosporins, aminoglycosides. White count 4700, hemoglobin was 9, sodium was 137, potassium 6.0, chloride 106, bicarbonate 25, BUN 43, creatinine 1.94. He was started on gentamicin 70 mg q.24 and was found to have a therapeutic tro ugh level at this range was changed to 80 mg q.24h. He was started also on normal saline at 50 an ho ur. Continued on his Isordil, amlodipine, carvedilol, apixaban, Protonix. Repeat urine culture was done, did confirm this. He was given a prescription for 7 days of IV antibiotics. He was maintained in the acute unit on IV fluids. His renal function improved to a creatinine of 1.39 and his IV flui ds were discontinued, but he was transferred to the skilled unit for continued need for IV gentamicin 80 mg daily. He was therefore transferred to the skilled unit where he will be continued on his gen tamicin 80 mg daily. He will have serial renal function evaluation as his acute on chronic renal jessica hull appears to have stabilized and his GFR is 59 now with a creatinine of 1.39. Lungs were clear wi th no evidence of congestive heart failure as he has had this happen in the past. Vital signs were s table with discharge blood pressure of 129/60, temperature 98, pulse 69, respirations 18, O2 sats 98% . He will be followed by myself in the [facility].
--- NOTE | 2017-10-13 16:51 | PQF ---
ANANDA UMANZOR LUKE MD [id number] CLINICAL DOCUMENTATION CLARIFICATION FORM: POST DISCHARGE Addendum to original discharge summary date: ____ Late entry note date: 10/14/17 DATE: 10/13/17 ATTN: DR STOKES Please exercise your independent, professional judgment in responding to the clarification form. Clinical indicators are provided on the bottom of this form for your review Please check appropriate box(s): [x ] Pressure Ulcer: (Stage I: Erythema; Stage II: Partial thickness; Stage III : Full thickness; Stage IV: Necrosis to muscle/bone) [ x ] Location: ___right first mtp joint POA: [ ] Yes [ ] No [ ] Unable to determine Stage (I to IV): ___II____ (Left Right__X___ Bilateral N/A____ _) [ ] Location: POA: [ ] Yes [ ] No [ ] Unable to determine Stage (I to IV): (Left Right Bilateral N/A ) [ ] Location: POA: [ ] Yes [ ] No [ ] Unable to determine Stage (I to IV): (Left Right Bilateral N/A ) [ ] Gangrene present [ ] Yes [ ] ischemic gangrene [ ] gas gangrene [ X ] No [ ] No pressure ulcer diagnosis [ ] Deep tissue injury [ ] Other diagnosis [ ] Unable to determine In addition, please specify: Present on Admission (POA): [X ] Yes [ ] No [ ] Unable to determine For continuity of documentation, please document condition throughout progress notes and discharge summary. Thank You. CLINICAL INDICATORS - SIGNS / SYMPTOMS / LABS Pre-ulcer skin changes limited to persistent focal edema (Stage 1) Abrasion, blister, partial thickness skin loss involving epidermis and/or dermis (Stage 2) Full thickness skin loss involving damage or necrosis of SQ tissue. (Stage 3) Necrosis of soft tissue through to underlying muscle, tendon, or bone. (Stage 4) Purple or maroon discolored skin or blood filled blister RISK FACTORS: Immobility/ bedridden/ debility TREATMENTS: Wound care consult Chemical or mechanical wound debridement DOCUMENTATION OF "RIGHT FOOT SHOWS ULCER OVER THE FIRST MTP JOINT WITH ESCHAR BEING DEBRIDED." "DECUBITUS ULCER OVER RIGHT FOOT WITH GRAM NEGATIVE BERTHA GROWING ON GENTAMICIN WITH WOUND CARE APPEARS TO BE IMPROVING." ON PROGRESS NOTE 10/03/17 (This form is maintained as a part of the permanent medical record) 2014 [employer], [employer] All Rights Reserved [email or web address] [phone] MTDD
== END 2017-10-06 12:31 | disposition swing bed (61) | DRG 690 ==
LOC: INTOOBSV 16:46 → OBSVTOIN 16:46 → NAV ACUTE 16:46
PROVIDERS: ADMIT Internal Medicine; ATTEND Internal Medicine
DX: N39.0 Urinary tract infection, site not specified (principal); L89.892 Pressure ulcer of other site, stage 2; I73.9 Peripheral vascular disease, unspecified; N18.3 Chronic kidney disease, stage 3 (moderate); B96.20 Unspecified Escherichia coli [E. coli] as the cause of diseases classified elsewhere; Z89.612 Acquired absence of left leg above knee; Z16.29 Resistance to other single specified antibiotic; Z16.23 Resistance to quinolones and fluoroquinolones; I25.10 Atherosclerotic heart disease of native coronary artery without angina pectoris; I12.9 Hypertensive chronic kidney disease with stage 1 through stage 4 chronic kidney disease, or unspecified chronic kidney disease; N40.0 Benign prostatic hyperplasia without lower urinary tract symptoms; M19.90 Unspecified osteoarthritis, unspecified site; Z86.718 Personal history of other venous thrombosis and embolism; Z79.01 Long term (current) use of anticoagulants; Z86.711 Personal history of pulmonary embolism; F32.9 Major depressive disorder, single episode, unspecified
CPT/HCPCS: 36415; 36416; 80048; 80170; 81001; 85014; 85018; 85025; 85049; 87070; 87077; 87086; 87186; 87205; A4216; J1580; J7050

== ENCOUNTER 2017-10-06 12:15 | Inpatient (IN) | payer MEDICARE ==
[2017-10-06] MEDS ORDERED: Loperamide HCl 2 MG CAP PO PRN (17:01)
[2017-10-06] MEDS ORDERED: Acetaminophen 325 MG TAB PO PRN (17:01)
[2017-10-06] MEDS: Carvedilol 25 MG TAB PO SCH (17:07)
[2017-10-06] MEDS: Gentamicin Sulfate 80 MG in Premix Bag 1 BAG IVPB SCH (20:53)
[2017-10-06] MEDS: Apixaban 5 MG TAB PO SCH (20:55)
[2017-10-06] MEDS: Simethicone Chewable 80 MG TAB PO SCH (20:55)
[2017-10-06] MEDS: Amlodipine 10 MG TAB PO SCH (20:55)
[2017-10-06] MEDS: hydrALAZINE 10 MG TAB PO SCH (20:56)
[2017-10-07] MEDS: Carvedilol 25 MG TAB PO SCH ×2 (14:25→17:55)
[2017-10-07] MEDS: Apixaban 5 MG TAB PO SCH ×2 (14:26→20:39)
[2017-10-07] MEDS: hydrALAZINE 10 MG TAB PO SCH ×2 (14:26→20:39)
[2017-10-07] MEDS: Citalopram 20 MG TAB PO SCH (14:26)
[2017-10-07] MEDS: Famotidine 20 MG TAB PO SCH (14:26)
[2017-10-07] MEDS: Multivitamin W/ Minerals 1 TAB PO SCH (14:26)
[2017-10-07] MEDS: Simethicone Chewable 80 MG TAB PO SCH ×3 (14:26→20:39)
[2017-10-07] MEDS: Amlodipine 10 MG TAB PO SCH (20:39)
[2017-10-07] MEDS: Gentamicin Sulfate 80 MG in Premix Bag 1 BAG IVPB SCH (20:40)
--- NOTE | 2017-10-07 21:52 | PRG ---
DATE OF SERVICE: 10/07/2017 HISTORY OF PRESENT ILLNESS: This is a well-developed, well-nourished, very pleasant 87-year-old jonatan k male who was admitted to the hospital from the [facility], who developed foul-smelling urine at t he [facility]. Culture was done which revealed E. coli which was resistant to sulfa drugs resistan t to quinolones. He is unable to take Macrodantin for his poor renal function and was only able to t lien IV antibiotics and was admitted to the hospital for IV gentamicin. SUBJECTIVE: The patient states he is doing very well, tolerating his medication well and has no comp laints today. He states he is eating very well. Denies any fever, chills, and denies any diarrhea. PHYSICAL EXAMINATION: VITAL SIGNS: Today reveal blood pressure this morning of 107/55, pulse 70-75, respirations 17-20, O2 sat 96-99% on room air, T-max 99.4. GENERAL: This is a well-developed, well-nourished, somewhat obese black male, in no apparent distres s at this time. He states he is doing well and has no complaints. HEENT: Reveals normocephalic, nontraumatic cranium. Pupils equal, round, and reactive. Extraocular movements intact. Nose and throat are somewhat dry but clear. NECK: Supple, without mass, nodes, or bruits. CHEST: Clear to auscultation. No rales, no rhonchi, no wheezes are heard. No cough is noted. HEART: Reveals a regular rate and rhythm without murmurs, gallops, or rubs. ABDOMEN: Obese, soft, nontender, without organomegaly. Colostomy is functioning well. GENITOURINARY: Deferred. EXTREMITIES: Reveal no clubbing, cyanosis. His right foot is still dressed. LABORATORY DATA: Yesterday revealed hemoglobin 8.7, hematocrit 27.3, platelet count of 109,000. Sod ium is 137, potassium 5.6, which is down from 6.0 two days ago. Chloride 111, carbon dioxide 20 with a BUN of 27 and creatinine decreased down from 1.89 down to 1.39. GFR is up from 41-59. IMPRESSION: 1. Escherichia coli infection responding well to gentamicin. 2. Chronic kidney disease, stage 3, much improved. 3. Peripheral vascular disease with ulcer on the right foot. 4. Coronary artery disease without angina. 5. Hypertension. 6. Generalized weakness. PLAN: 1. Continue gently hydrate the patient. 2. Continue IV gent with pharmacy dosing and following the gent levels. 3. Continue with wound care. 4. Stress ulcer prophylaxis. 5. DVT prophylaxis. 6. Decubitus precautions. 7. Adjust pressure medications as needed. 8. Aspiration precautions. 9. Continue therapy.
[2017-10-08] MEDS: Multivitamin W/ Minerals 1 TAB PO SCH (07:42)
[2017-10-08] MEDS: Apixaban 5 MG TAB PO SCH ×2 (07:43→20:43)
[2017-10-08] MEDS: Citalopram 20 MG TAB PO SCH (07:43)
[2017-10-08] MEDS: Simethicone Chewable 80 MG TAB PO SCH ×3 (07:44→20:43)
[2017-10-08] MEDS: hydrALAZINE 10 MG TAB PO SCH ×2 (07:45→20:42)
[2017-10-08] MEDS: Famotidine 20 MG TAB PO SCH (07:45)
[2017-10-08] MEDS: Carvedilol 25 MG TAB PO SCH ×2 (07:45→17:37)
[2017-10-08] MEDS: Gentamicin Sulfate 80 MG in Premix Bag 1 BAG IVPB SCH (20:40)
[2017-10-08] MEDS: Amlodipine 10 MG TAB PO SCH (20:43)
--- NOTE | 2017-10-08 21:13 | PRG ---
DATE OF SERVICE: 10/08/2017 HISTORY OF PRESENT ILLNESS: Mr. Zamorano is a very pleasant 87-year-old black male admitted to the [facility] the [facility] with an E. coli resistant urinary tract infection, resistant to sulfa dr luis, quinolones. The patient is unable to take Macrodantin, so he was started on IV gentamicin. SUBJECTIVE: The patient is awake and alert today. He states he is doing well and has no complaints. He states he has no fever, chills, and feels okay. His daughter is in the room, and we answered al l of her questions. PHYSICAL EXAMINATION: VITAL SIGNS: Today reveal blood pressure this morning 146/65, pulse 68, respirations 20, O2 saturati on 97% on room air, T-max 97.7. No labs are done today. GENERAL: This is a well-developed, well-nourished, very pleasant black male in no apparent distress at this time. HEENT: Reveals normocephalic, nontraumatic cranium. Pupils are equally round and reactive. Nose an d throat are slightly dry. NECK: Supple, without mass, nodes or bruits. LUNGS: Chest is clear to auscultation. No rales, rhonchi or wheezes are heard. No cough is heard t [place]. CARDIOVASCULAR: Reveals a regular rate and rhythm without murmurs, gallops or rubs. ABDOMEN: Obese, soft, nontender, without organomegaly. Colostomy noted to be still functioning well . : Deferred. EXTREMITIES: Reveal no clubbing, cyanosis or edema. Right foot is covered with sterile dressings. IMPRESSION: 1. Escherichia coli resistant to SULFA and QUINOLONES, presently responding well to gentamicin. 2. Chronic kidney disease stage 3, much improved. 3. Peripheral vascular disease with also in the right foot. 4. Coronary artery disease without angina. 5. Hypertension. 6. Generalized weakness. PLAN: 1. Gently hydrate the patient. 2. Continue IV gentamicin with pharmacy dosing and following the gentamicin levels. 3. Continue with wound care. 4. Stress ulcer prophylaxis. 5. Decubitus precautions. 6. Deep venous thrombosis prophylaxis. 7. Continue to monitor the patient's blood pressure medication. 8. Aspiration precautions. 9. Continue present therapy.
[2017-10-09 05:38] LABS: #Eosinphils 0.1 thou/uL (0.0-0.7); #Lymphocytes 1.2 thou/uL (1.20-3.40); #Monocytes 0.5 thou/uL (0.11-0.59); #Neutrophils 3.1 thou/uL (1.40-6.50); %Basophils 0.6 % (0.0-1.0); %Eosinophils 2.2 % (0.0-10.0); %Lymphocytes 24.1 % (21.0-51.0); %Monocytes 9.7 % (0.0-10.0); %Neutrophils 63.3 % (42.0-75.0); Hemoglobin 8.6 g/dL (14.0-18.0); Mean Corpuscular HGB CONC 31.1 g/dL (32.0-36.0); Mean Corpuscular Hemoglobin 30.7 pg (27.0-31.0); Mean Corpuscular Volume 98.9 fl (80.0-94.0); Mean Platelet Volume 8.2 fL (7.4-10.4); Platelet Count 113 thou/uL (130-400); RBC Distribution Width 12.9 % (11.5-14.5); Red Blood Cell (RBC) Count 2.81 mill/uL (4.70-6.10); White Blood Cell (WBC) Count 4.9 thou/uL (4.8-10.8)
[2017-10-09 05:41] LABS: MDiff Complete? YES; Manual Diff?? NO
[2017-10-09 05:52] LABS: ALT (SGPT) 10 U/L (8-55); AST (SGOT) 13 U/L (5-34); Albumin 3.3 g/dL (3.4-4.8); Alkaline Phosphatase 51 U/L (40-150); Anion Gap 12 mmol/L (10-20); BUN (Urea Nitrogen) 43 mg/dL (8.4-25.7); Bilirubin, Total 0.1 mg/dL (0.2-1.2); Calc. Creatinine Clearance 34 mL/min (70-130); Calcium 8.7 mg/dL (7.8-10.44); Carbon Dioxide 20 mmol/L (23-31); Chloride 110 mmol/L (98-107); Estimated GFR-MDRD 46; Globulin 3.1 g/dL (2.4-3.5); Glucose 109 mg/dL (83-110); Potassium 5.4 mmol/L (3.5-5.1); Protein, Total 6.4 g/dL (5.8-8.1); Sodium 137 mmol/L (136-145)
[2017-10-09] MEDS: Multivitamin W/ Minerals 1 TAB PO SCH (09:00)
[2017-10-09] MEDS: Apixaban 5 MG TAB PO SCH ×2 (09:00→21:13)
[2017-10-09] MEDS: Carvedilol 25 MG TAB PO SCH ×2 (09:00→16:11)
[2017-10-09] MEDS: Famotidine 20 MG TAB PO SCH (09:00)
[2017-10-09] MEDS: Citalopram 20 MG TAB PO SCH (09:01)
[2017-10-09] MEDS: Simethicone Chewable 80 MG TAB PO SCH ×3 (09:01→21:12)
[2017-10-09] MEDS: hydrALAZINE 10 MG TAB PO SCH ×2 (09:37→21:12)
--- NOTE | 2017-10-09 19:09 | PRG ---
DATE OF SERVICE: 10/09/2017 DATE OF ADMISSION: 10/06/2017 HISTORY OF PRESENT ILLNESS: Mr. Zamroano is a very pleasant 87-year-old white male admitted in the [facility] from the shelter with a resistant E. coli infection. He was started on IV gentamicin and is being followed by pharmacy. SUBJECTIVE: The patient states he is doing well. He is awake and alert today. He is eating fairly well. He has no complaints today. PHYSICAL EXAMINATION: VITAL SIGNS: Reveal blood pressure this morning was 146/67, pulse 72, respirations 22, O2 sat 96% on room air, and T-max 98.4. GENERAL: This is a well-developed, well-nourished, slightly obese, pleasant black male in no apparen t distress at this time. HEENT: Reveals normocephalic, nontraumatic cranium. Pupils are equal, round, and reactive. Extraoc ular movements intact. Nose and throat are slightly dry, but clear. NECK: Supple, without mass, nodes or bruits. LUNGS: Chest is clear. No rales or rhonchi are heard. No wheezing or cough is heard. HEART: Reveals a regular rate and rhythm. No murmurs, gallops or rubs are noted. ABDOMEN: Obese, soft, nontender, without organomegaly, normal bowel sounds are noted. Colostomy is noted to be functioning still very well. GENITOURINARY: Deferred. EXTREMITIES: Reveal no clubbing, cyanosis or edema. Right foot is still dressed and covered. LABORATORY DATA: Reveal white count 4,900 with hemoglobin 8.6, hematocrit 27.8 and platelet count of 113,000. Sodium is 137, potassium 5.4, chloride 110, carbon dioxide 20 with BUN 43, creatinine 1.71. Liver en zymes are within normal limits. IMPRESSION: 1. Escherichia coli resistant to SULFA and QUINOLONES, presently responding well to gentamicin. 2. Chronic kidney disease stage 3, much improved. 3. Peripheral vascular disease with ulcer on the right foot. 4. Coronary artery disease without angina. 5. Hypertension. 6. Generalized weakness. PLAN: 1. Continue IV gentamicin with pharmacy dosing and following gentamicin levels. 2. Continue wound care. 3. Stress ulcer prophylaxis. 4. Decubitus precautions. 5. Deep venous thrombosis prophylaxis. 6. Continue to monitor the patient's blood pressure closely. 7. Aspiration precautions. 8. Continue PT and OT.
[2017-10-09] MEDS: Gentamicin Sulfate 80 MG in Premix Bag 1 BAG IVPB SCH (21:06)
[2017-10-09] MEDS: Amlodipine 10 MG TAB PO SCH (21:12)
--- NOTE | 2017-10-10 07:54 | PRG ---
DATE OF SERVICE: 10/10/2017 HISTORY OF PRESENT ILLNESS: This patient is an 87-year-old, very pleasant black male patient of Dr. Botello'conrado initially admitted to the hospital from the alf with a resistant E. coli. It was resistant to sulfa drugs and quinolones. He is unable to take Macrodantin because of his poor renal function. He was started on IV gentamicin. He was transferred to swing bed for continued IV antibi otics and for physical therapy and occupational therapy. SUBJECTIVE: The patient this morning, states he is doing well. He is waiting for his breakfast. He states he is eating fairly well and denies any fever, chills, or any significant pain. He denies an y diarrhea. He states he is doing well and looking forward to continuing his antibiotics we can get better and go back to the alf. VITAL SIGNS: Vital signs this morning reveal blood pressure 146/67, pulse 71-72, respirations 20, T- max 98.8. PHYSICAL EXAMINATION: GENERAL: This is a well-developed, well-nourished, very pleasant black male in no apparent distress at this time. HEENT: Reveals normocephalic, nontraumatic cranium. Pupils equal, round, and reactive. Extraocular movements intact. Nose and throat slightly dry, but clear. NECK: Supple, without mass, nodes or bruits. No jugular venous distention is noted today. LUNGS: Chest is clear to auscultation. No rales, rhonchi or wheezes are heard. No cough is heard t [place]. CARDIOVASCULAR: Reveals a regular rate and rhythm without murmurs, gallops or rubs. ABDOMEN: Obese, soft, nontender, without organomegaly. Colostomy left lower quadrant is functioning well. : Deferred. EXTREMITIES: Reveal no clubbing, cyanosis or edema. Dressing still covering his right foot. LABORATORY: Labs yesterday revealed white count 4900 with hemoglobin 8.6, hematocrit 27.8 and a plat elet count of 113,000. Sodium was 137, potassium 5.4, although he is not getting potassium, chloride 110, carbon dioxide 20 with a BUN 43, creatinine 1.73, which goes up and down between 1.39 and 1.94. So this is about his normal. IMPRESSION: 1. Escherichia coli resistant to sulfa and quinolones, presently responding to gentamicin. 2. Chronic kidney disease stage 3. 3. Peripheral vascular disease with ulcer on the right foot. 4. Coronary artery disease without angina. 5. Hypertension. 6. Generalized weakness. PLAN: 1. Continue IV gentamicin with pharmacy dosing and following gentamicin levels. 2. Continue wound care. 3. Continue following the patient's electrolytes. 4. Stress ulcer prophylaxis. 5. Decubitus precautions. 6. Deep venous thrombosis prophylaxis. 7. Continue to monitor the patient's blood pressure closely. 8. Aspiration precautions. 9. Continue physical therapy and occupational therapy.
[2017-10-10] MEDS: hydrALAZINE 10 MG TAB PO SCH ×2 (08:22→20:53)
[2017-10-10] MEDS: Famotidine 20 MG TAB PO SCH (08:23)
[2017-10-10] MEDS: Citalopram 20 MG TAB PO SCH (08:23)
[2017-10-10] MEDS: Apixaban 5 MG TAB PO SCH ×2 (08:24→20:54)
[2017-10-10] MEDS: Carvedilol 25 MG TAB PO SCH ×2 (08:24→16:52)
[2017-10-10] MEDS: Simethicone Chewable 80 MG TAB PO SCH ×3 (08:25→20:54)
[2017-10-10] MEDS: Multivitamin W/ Minerals 1 TAB PO SCH (08:25)
[2017-10-10] MEDS: Gentamicin Sulfate 80 MG in Premix Bag 1 BAG IVPB SCH (20:53)
[2017-10-10] MEDS: Amlodipine 10 MG TAB PO SCH (20:54)
[2017-10-11 06:34] LABS: Hemoglobin 8.5 g/dL (14.0-18.0); Platelet Count 108 thou/uL (130-400)
--- NOTE | 2017-10-11 07:27 | PRG ---
DATE OF SERVICE: 10/11/2017 HISTORY OF PRESENT ILLNESS: Mr. Le is a very pleasant 87-year-old white male, patient of Dr. Boris ferguson who was admitted to the hospital with resistant E. coli. It was resistant to both QUINOLONES a nd SULFA DRUGS. Unfortunately, his renal insufficiency will not allow to use Macrodantin. He was st arted on IV gentamicin and was transferred to swing bed for continued IV antibiotics for physical the rapy and occupational therapy. SUBJECTIVE: The patient states he is doing well this morning. He is being changed at this time. He states he is hungry and ready for some breakfast. He has no complaints today. PHYSICAL EXAMINATION: VITAL SIGNS: Blood pressure this morning reveals 123/59, pulse 67-74, respirations 18-20, O2 sat 98% on room air, T-max 98.4. GENERAL: This is a well-developed, well-nourished, very pleasant, somewhat obese black male in no ap parent distress at this time. HEENT: Reveals normocephalic, nontraumatic cranium. Pupils equal, round, and reactive. Extraocular movements intact. Nose and throat are slightly dry. NECK: Supple, without mass, nodes or bruits. LUNGS: Chest is clear to auscultation. No rales, rhonchi, wheezes or cough is heard. CARDIOVASCULAR: Heart reveals a regular rate and rhythm without murmurs, gallops or rubs. ABDOMEN: Obese, soft, nontender, without organomegaly. Colostomy in left lower quadrant is noted fu nctioning well. GENITOURINARY: Deferred. EXTREMITIES: Reveal no clubbing, cyanosis or edema. Dressings on his right great toe are intact and not draining much. LABORATORY DATA: Today reveals hemoglobin 8.5, hematocrit 27.1, platelet count 108,000. IMPRESSION: 1. Escherichia coli resistant urinary tract infection, presently on gentamicin. 2. Chronic kidney disease stage 3. 3. Peripheral vascular disease with ulcer of the right foot. 4. Coronary artery disease without angina. 5. Hypertension. 6. Generalized weakness. PLAN: 1. Continue IV gentamicin with pharmacy dosing and follow gentamicin levels. 2. Continue wound care. 3. Follow the patient's electrolytes. 4. Stress ulcer prophylaxis. 5. Decubitus precautions. 6. Dav venous thrombosis prophylaxis. 7. We will continue to monitor the patient'is blood pressure closely. 8. Aspiration precautions. 9. We will continue PT and OT. i
[2017-10-11] MEDS: hydrALAZINE 10 MG TAB PO SCH ×2 (08:56→21:40)
[2017-10-11] MEDS: Citalopram 20 MG TAB PO SCH (08:57)
[2017-10-11] MEDS: Apixaban 5 MG TAB PO SCH ×2 (08:57→21:41)
[2017-10-11] MEDS: Simethicone Chewable 80 MG TAB PO SCH ×3 (08:58→21:43)
[2017-10-11] MEDS: Carvedilol 25 MG TAB PO SCH ×2 (08:58→15:56)
[2017-10-11] MEDS: Famotidine 20 MG TAB PO SCH (08:58)
[2017-10-11] MEDS: Multivitamin W/ Minerals 1 TAB PO SCH (08:58)
[2017-10-11] MEDS ORDERED: Gentamicin Sulfate 80 MG in Premix Bag 1 BAG IVPB SCH (21:00)
[2017-10-11] MEDS: Amlodipine 10 MG TAB PO SCH (21:41)
[2017-10-12 05:11] VITALS: BMI 20.7
[2017-10-12] MEDS: hydrALAZINE 10 MG TAB PO SCH ×2 (07:56→21:54)
[2017-10-12] MEDS: Apixaban 5 MG TAB PO SCH ×2 (07:58→21:55)
[2017-10-12] MEDS: Multivitamin W/ Minerals 1 TAB PO SCH (07:58)
[2017-10-12] MEDS: Citalopram 20 MG TAB PO SCH (07:59)
[2017-10-12] MEDS: Famotidine 20 MG TAB PO SCH (07:59)
[2017-10-12] MEDS: Carvedilol 25 MG TAB PO SCH ×2 (08:00→16:40)
[2017-10-12] MEDS: Simethicone Chewable 80 MG TAB PO SCH ×3 (08:00→21:55)
[2017-10-12] MEDS: Amlodipine 10 MG TAB PO SCH (21:55)
--- NOTE | 2017-10-12 22:21 | PRG ---
DATE OF ADMISSION: 10/06/2017 DATE OF SERVICE: 10/12/2017 HISTORY OF PRESENT ILLNESS: Mr. Zamorano is a very pleasant 87-year-old white male that was admitted to the hospital with resistant E. coli, resistant to the quinolones and sulfa drugs and the patient w as renal insufficiency, is not able to have Macrodantin. The patient was started on gentamicin and w as transferred to swing bed for continued IV antibiotics for physical therapy and occupational therap y. SUBJECTIVE: The patient has no complaints today. He states he is doing very well. He is hungry and eating fair. He has no complaints. His daughter checks on him frequently. OBJECTIVE: VITAL SIGNS: Reveal blood pressure this morning 155/67, pulse 70-67, respirations 20-21, O2 sat 94% to 97% on room air, T-max 99.3, blood pressure this evening is 131/69. GENERAL: This is a well-developed, well-nourished, very pleasant black male, in no apparent distress at this time. HEENT: Reveals normocephalic, nontraumatic cranium. Pupils are equal, round, and reactive. Extraoc ular movements are intact. Nose and throat are dry. NECK: Supple, without mass, nodes or bruits. LUNGS: Chest is clear to auscultation, but distant. No rales, no rhonchi, no wheezes are heard. Th e patient does not have a cough today. CARDIOVASCULAR: Heart reveals a regular rate and rhythm. No murmurs, gallops or rubs are noted. ABDOMEN: Obese, soft, nontender. Colostomy in the left lower quadrant is functioning well. No rebo und or guarding is noted. : Deferred. EXTREMITIES: Reveal no clubbing, cyanosis or edema. Dressings on his right great toe still intact, not draining much. LABORATORY DATA: Reveal hemoglobin 8.5, hematocrit 27.1, platelet count 108,000. Creatinine is 1.81 . GFR is 44. The patient's random gentamicin level today was 1.4, yesterday 1.8, day before 2.2 and gentamicin trough was 3.1. IMPRESSION: 1. Escherichia coli resistant urinary tract infection, presently on gentamicin. 2. Chronic kidney disease, stage 3. 3. Peripheral vascular disease with ulcer on the right foot. 4. Coronary artery disease without angina. 5. Hypertension. 6. Generalized weakness. PLAN: 1. Continue IV gentamicin with pharmacy dosing and following the gentamicin levels. 2. Continue wound care. 3. Follow the patient's electrolytes. 4. Stress ulcer prophylaxis. 5. Decubitus precautions. 6. Deep venous thrombosis. 7. Continue to monitor the patient's blood pressure closely. 8. Aspiration precautions. 9. Continue physical therapy and occupational therapy.
[2017-10-13 05:43] LABS: Hemoglobin 8.1 g/dL (14.0-18.0); Platelet Count 109 thou/uL (130-400)
[2017-10-13 07:05] VITALS: BP 174/82; TEMP 97.1
[2017-10-13] MEDS: Simethicone Chewable 80 MG TAB PO SCH (07:49)
[2017-10-13] MEDS: Carvedilol 25 MG TAB PO SCH (07:49)
[2017-10-13] MEDS: hydrALAZINE 10 MG TAB PO SCH (07:49)
[2017-10-13] MEDS: Citalopram 20 MG TAB PO SCH (07:50)
[2017-10-13] MEDS: Multivitamin W/ Minerals 1 TAB PO SCH (07:50)
[2017-10-13] MEDS: Apixaban 5 MG TAB PO SCH (07:51)
[2017-10-13] MEDS: Famotidine 20 MG TAB PO SCH (07:51)
--- NOTE | 2017-10-13 10:38 | DIS ---
FINAL DIAGNOSES: 1. Resistant Escherichia coli urinary tract infection, resolved after IV gentamicin 2. Chronic kidney disease stage 3 with exacerbation with dehydration, but then resolution with IV fl uids and stable on discharge with a GFR of 39, creatinine 1.96. 3. Degenerative joint disease. 4. Peripheral vascular disease, status post left above the knee amputation. 5. Congestive heart failure with no evidence for recurrence. 6. Coronary disease, no evidence of exacerbation. HOSPITAL COURSE: The patient is a very pleasant 87-year-old black male living in a [facility] use of multiple problems who was admitted to the [facility] acute unit because of a resistant Escherichia coli urinary tract infection, started on gentamicin and IV fluids and tolerated 80 mg of gentamicin daily with therapeutic trough levels 0.9-1.8. He received a full 10 day course of IV gentamicin. Hi s renal function improved and then stabilized off of IV fluids. He was eating well, and was tolerati ng nectar thickened diet will be continued on this at the [facility]. He had no evidence of conges tive heart failure or angina during his hospitalization. His blood pressure had remained stable from 146-155 until the date of discharge, but then was repeated and was back at this level, temperature w as 97, respirations 21, O2 saturation was 93%. Most recent laboratories on discharge showed a sodium 137, potassium 5.4, chloride 110, bicarbonate 20, BUN 43, creatinine 1.96, glucose 109, hemoglobin 8 .1, hematocrit 26, platelet 109. He will be followed back at the [facility] by myself. He will be continued on his Tylenol as neede d, Norvasc 10 nightly, apixaban 2.5 twice daily, carvedilol 25 twice daily, citalopram 10 mg daily, f amotidine 20 daily, hydralazine 25 mg twice daily, isosorbide mononitrate 60 mg daily, pantoprazole 4 0 mg nightly, simethicone 80 mg p.o. 3 times daily. He will have repeat base met profile and urinaly sis done next week for followup.
== END 2017-10-13 12:00 | DRG 690 ==
LOC: NAV ACUTE 12:15
PROVIDERS: ADMIT Internal Medicine; ATTEND Internal Medicine
DX: N39.0 Urinary tract infection, site not specified (principal); I73.9 Peripheral vascular disease, unspecified; N18.3 Chronic kidney disease, stage 3 (moderate); B96.20 Unspecified Escherichia coli [E. coli] as the cause of diseases classified elsewhere; Z16.23 Resistance to quinolones and fluoroquinolones; Z16.29 Resistance to other single specified antibiotic; I25.10 Atherosclerotic heart disease of native coronary artery without angina pectoris; I12.9 Hypertensive chronic kidney disease with stage 1 through stage 4 chronic kidney disease, or unspecified chronic kidney disease; Z93.3 Colostomy status
CPT/HCPCS: 36415; 80053; 80170; 82565; 85014; 85018; 85025; 85049; A4216; J1580

== ENCOUNTER 2017-10-30 18:59 | Emergency (ER) | payer MEDICARE, OTHER ==
[2017-10-30] MEDS ORDERED: Sodium Chloride 0.9% 500 ML ONE (19:25)
[2017-10-30 19:33] LABS: #Basophils 0.1 thou/uL (0.0-0.2); #Eosinphils 0.1 thou/uL (0.0-0.7); #Lymphocytes 0.9 thou/uL (1.20-3.40); #Monocytes 0.4 thou/uL (0.11-0.59); #Neutrophils 3.3 thou/uL (1.40-6.50); %Basophils 1.3 % (0.0-1.0); %Eosinophils 1.3 % (0.0-10.0); %Monocytes 7.4 % (0.0-10.0); Hemoglobin 8.6 g/dL (14.0-18.0); Mean Corpuscular HGB CONC 30.7 g/dL (32.0-36.0); Mean Corpuscular Hemoglobin 30.6 pg (27.0-31.0); Mean Corpuscular Volume 99.9 fl (80.0-94.0); Mean Platelet Volume 8.9 fL (7.4-10.4); Platelet Count 178 thou/uL (130-400); RBC Distribution Width 13.2 % (11.5-14.5); Red Blood Cell (RBC) Count 2.82 mill/uL (4.70-6.10); White Blood Cell (WBC) Count 4.7 thou/uL (4.8-10.8)
[2017-10-30 19:39] LABS: ALT (SGPT) 23 U/L (8-55); AST (SGOT) 21 U/L (5-34); Albumin 3.5 g/dL (3.4-4.8); Alkaline Phosphatase 53 U/L (40-150); Anion Gap 15 mmol/L (10-20); BUN (Urea Nitrogen) 51 mg/dL (8.4-25.7); Bilirubin, Total 0.3 mg/dL (0.2-1.2); Calc. Creatinine Clearance 0 mL/min (70-130); Calcium 9.4 mg/dL (7.8-10.44); Carbon Dioxide 23 mmol/L (23-31); Chloride 105 mmol/L (98-107); Estimated GFR-MDRD 28; Globulin 3.8 g/dL (2.4-3.5); Glucose 110 mg/dL (83-110); Protein, Total 7.3 g/dL (5.8-8.1); Sodium 135 mmol/L (136-145)
[2017-10-30 19:48] LABS: Potassium 7.9 mmol/L (3.5-5.1)
[2017-10-30] MEDS ORDERED: Insulin Regular 300 UNITS/3 ML VIAL ONE (19:50)
[2017-10-30] MEDS ORDERED: Dextrose 50% Abboject 50 ML SYRINGE ONE (19:50)
[2017-10-30] MEDS ORDERED: Sodium Chloride 0.9% 1,000 ML ONE (20:09)
[2017-10-30] MEDS ORDERED: Calcium Chloride 1 GM/10 ML Abboject SYRINGE ONE (20:10)
[2017-10-30] MEDS ORDERED: Sodium Bicarb 50 MEQ/50 ML Abboject 8.4% SYRINGE ONE (20:10)
== END 2017-10-30 21:29 | disposition short-term general hospital (02) ==
LOC: NAV ERS 18:59
DX: E87.5 Hyperkalemia (principal); N17.9 Acute kidney failure, unspecified; F03.90 Unspecified dementia, unspecified severity, without behavioral disturbance, psychotic disturbance, mood disturbance, and anxiety; E78.5 Hyperlipidemia, unspecified; I25.10 Atherosclerotic heart disease of native coronary artery without angina pectoris; I10 Essential (primary) hypertension; N40.0 Benign prostatic hyperplasia without lower urinary tract symptoms; Z87.891 Personal history of nicotine dependence
CPT/HCPCS: 36416; 85025; 93005; 96361; 96365; 96375; J1815; J7050

== ENCOUNTER 2017-11-10 14:17 | Outpatient (CLI) | payer MEDICARE ==
[2017-11-10 14:58] LABS: Anion Gap 16 mmol/L (10-20); BUN (Urea Nitrogen) 36 mg/dL (8.4-25.7); Calc. Creatinine Clearance 0 mL/min (70-130); Calcium 8.6 mg/dL (7.8-10.44); Carbon Dioxide 23 mmol/L (23-31); Chloride 104 mmol/L (98-107); Estimated GFR-MDRD 35; Glucose 159 mg/dL (83-110); Potassium 5.9 mmol/L (3.5-5.1); Sodium 137 mmol/L (136-145)
== END 2017-11-10 14:18 | disposition home or self-care (01) ==
LOC: NAV LABSP 14:17
PROVIDERS: ATTEND Internal Medicine Nephrology
DX: I73.9 Peripheral vascular disease, unspecified (principal); E10.9 Type 1 diabetes mellitus without complications; I10 Essential (primary) hypertension
CPT/HCPCS: 36415; 80048

== ENCOUNTER 2017-11-13 15:30 | Outpatient (CLI) | payer MEDICARE ==
[2017-11-13 17:02] LABS: Anion Gap 15 mmol/L (10-20); BUN (Urea Nitrogen) 34 mg/dL (8.4-25.7); Calc. Creatinine Clearance 0 mL/min (70-130); Calcium 8.7 mg/dL (7.8-10.44); Carbon Dioxide 22 mmol/L (23-31); Chloride 102 mmol/L (98-107); Estimated GFR-MDRD 38; Glucose 127 mg/dL (83-110); Potassium 6.5 mmol/L (3.5-5.1); Sodium 132 mmol/L (136-145)
[2017-11-13 19:08] LABS: Follow-up Chemistry Comp? YES
[2017-11-13 19:09] LABS: Follow-up Result - Chemistry REPORT FAXED
== END 2017-11-13 15:31 | disposition home or self-care (01) ==
LOC: NAV LABSP 15:30
PROVIDERS: ATTEND Internal Medicine
DX: E10.9 Type 1 diabetes mellitus without complications (principal); I10 Essential (primary) hypertension
CPT/HCPCS: 36415; 80048

== ENCOUNTER 2017-11-13 21:57 | Emergency (ER) | payer MEDICARE, OTHER ==
[2017-11-13 22:44] LABS: ALT (SGPT) 12 U/L (8-55); AST (SGOT) 12 U/L (5-34); Albumin 3.8 g/dL (3.4-4.8); Alkaline Phosphatase 70 U/L (40-150); Anion Gap 15 mmol/L (10-20); BUN (Urea Nitrogen) 32 mg/dL (8.4-25.7); Bilirubin, Total 0.2 mg/dL (0.2-1.2); Calc. Creatinine Clearance 0 mL/min (70-130); Calcium 9.2 mg/dL (7.8-10.44); Carbon Dioxide 23 mmol/L (23-31); Chloride 101 mmol/L (98-107); Estimated GFR-MDRD 38; Globulin 4.1 g/dL (2.4-3.5); Glucose 106 mg/dL (83-110); Protein, Total 7.9 g/dL (5.8-8.1); Sodium 132 mmol/L (136-145)
[2017-11-13 22:47] LABS: Potassium 6.9 mmol/L (3.5-5.1)
[2017-11-13] MEDS ORDERED: Albuterol Sulfate 2.5 mg/3 ml Neb ONE (22:55)
[2017-11-13] MEDS ORDERED: Dextrose 50% Abboject 50 ML SYRINGE ONE (22:55)
[2017-11-13] MEDS ORDERED: Albuterol Sulfate 2.5 mg/0.5 ml Neb ONE (22:55)
[2017-11-13] MEDS ORDERED: Insulin Regular 300 UNITS/3 ML VIAL ONE (22:56)
[2017-11-14 01:17] LABS: Anion Gap 16 mmol/L (10-20); BUN (Urea Nitrogen) 32 mg/dL (8.4-25.7); Calc. Creatinine Clearance 0 mL/min (70-130); Calcium 9.2 mg/dL (7.8-10.44); Carbon Dioxide 21 mmol/L (23-31); Chloride 104 mmol/L (98-107); Estimated GFR-MDRD 39; Sodium 134 mmol/L (136-145)
[2017-11-14 01:21] LABS: Glucose 49 mg/dL (83-110); Potassium 6.8 mmol/L (3.5-5.1)
[2017-11-14] MEDS ORDERED: Dextrose 50% Abboject 50 ML SYRINGE ONE (01:21)
== END 2017-11-14 02:38 | disposition short-term general hospital (02) ==
LOC: NAV ERS 21:57
DX: E87.5 Hyperkalemia (principal); E78.5 Hyperlipidemia, unspecified; I10 Essential (primary) hypertension; E11.51 Type 2 diabetes mellitus with diabetic peripheral angiopathy without gangrene; Z87.891 Personal history of nicotine dependence; Z79.899 Other long term (current) drug therapy
CPT/HCPCS: 36415; 36416; 80048; 93005; 94640; 94760; 96374; 96375; 96376; J1815; J7611

== ENCOUNTER 2018-02-03 16:40 | Outpatient (CLI) | payer MEDICARE, MEDICAID ==
[2018-02-03 17:07] LABS: Anion Gap 14 mmol/L (10-20); BUN (Urea Nitrogen) 35 mg/dL (8.4-25.7); Calc. Creatinine Clearance 0 mL/min (70-130); Calcium 9.3 mg/dL (7.8-10.44); Carbon Dioxide 22 mmol/L (23-31); Chloride 102 mmol/L (98-107); Estimated GFR-MDRD 67; Glucose 105 mg/dL (83-110); Potassium 5.2 mmol/L (3.5-5.1); Sodium 133 mmol/L (136-145)
[2018-02-03 17:14] LABS: #Basophils 0.1 thou/uL (0.0-0.2); #Eosinphils 0.1 thou/uL (0.0-0.7); #Lymphocytes 1.2 thou/uL (1.20-3.40); #Monocytes 0.5 thou/uL (0.11-0.59); #Neutrophils 2.2 thou/uL (1.40-6.50); %Basophils 1.2 % (0.0-1.0); %Eosinophils 2.1 % (0.0-10.0); %Lymphocytes 29.8 % (21.0-51.0); %Neutrophils 53.9 % (42.0-75.0); Hemoglobin 9.6 g/dL (14.0-18.0); Mean Corpuscular HGB CONC 31.2 g/dL (32.0-36.0); Mean Corpuscular Hemoglobin 30.9 pg (27.0-31.0); Mean Corpuscular Volume 99.2 fL (78.0-98.0); Mean Platelet Volume 8.8 fL (7.4-10.4); Platelet Count 131 thou/uL (130-400); RBC Distribution Width 12.4 % (11.5-14.5); Red Blood Cell (RBC) Count 3.12 mill/uL (4.70-6.10); White Blood Cell (WBC) Count 4.1 thou/uL (4.8-10.8)
== END 2018-02-03 16:41 | disposition home or self-care (01) ==
LOC: NAV LAB 16:40
PROVIDERS: ATTEND Internal Medicine
DX: E10.9 Type 1 diabetes mellitus without complications (principal); I10 Essential (primary) hypertension
CPT/HCPCS: 36415; 80048; 85025

== ENCOUNTER 2018-04-20 12:13 | Outpatient (CLI) | payer MEDICARE, MEDICAID ==
[2018-04-20 12:28] LABS: Anion Gap 12 mmol/L (10-20); BUN (Urea Nitrogen) 27 mg/dL (8.4-25.7); Calc. Creatinine Clearance 0 mL/min (70-130); Calcium 8.8 mg/dL (7.8-10.44); Carbon Dioxide 29 mmol/L (23-31); Chloride 103 mmol/L (98-107); Estimated GFR-MDRD 68; Glucose 112 mg/dL (83-110); Potassium 3.8 mmol/L (3.5-5.1); Sodium 140 mmol/L (136-145)
[2018-04-20 12:29] LABS: Hemoglobin 9.3 g/dL (14.0-18.0); Mean Corpuscular HGB CONC 31.6 g/dL (32.0-36.0); Mean Corpuscular Hemoglobin 32.2 pg (27.0-31.0); Mean Platelet Volume 9.5 fL (7.4-10.4); Platelet Count 144 thou/uL (130-400); RBC Distribution Width 12.8 % (11.5-14.5); Red Blood Cell (RBC) Count 2.88 mill/uL (4.70-6.10); White Blood Cell (WBC) Count 4.6 thou/uL (4.8-10.8)
[2018-04-20 13:20] LABS: Follow-up Chemistry Comp? YES; Follow-up Hematology Comp? YES; Follow-up Result - Chemistry REPORT FAXED; Follow-up Result - Hematology REPORT FAXED
== END 2018-04-20 12:14 | disposition home or self-care (01) ==
LOC: NAV LAB 12:13
PROVIDERS: ATTEND Internal Medicine
DX: R05 Cough (principal)
CPT/HCPCS: 80048; 85027

== ENCOUNTER 2018-05-04 11:08 | Emergency (ER) | payer MEDICARE, MEDICAID ==
[2018-05-04 12:09] LABS: #Basophils 0.1 thou/uL (0.0-0.2); #Eosinphils 0.1 thou/uL (0.0-0.7); #Lymphocytes 1.4 thou/uL (1.20-3.40); #Monocytes 0.7 thou/uL (0.11-0.59); #Neutrophils 3.3 thou/uL (1.40-6.50); %Basophils 1.1 % (0.0-1.0); %Eosinophils 2.1 % (0.0-10.0); %Lymphocytes 24.9 % (21.0-51.0); %Monocytes 11.8 % (0.0-10.0); %Neutrophils 60.1 % (42.0-75.0); Hemoglobin 9.4 g/dL (14.0-18.0); Mean Corpuscular HGB CONC 31.6 g/dL (32.0-36.0); Mean Platelet Volume 8.4 fL (7.4-10.4); Platelet Count 170 thou/uL (130-400); RBC Distribution Width 13.3 % (11.5-14.5); Red Blood Cell (RBC) Count 2.94 mill/uL (4.70-6.10); White Blood Cell (WBC) Count 5.5 thou/uL (4.8-10.8)
--- NOTE | 2018-05-04 12:20 | RAD ---
ONE VIEW CHEST: Comparison: 10-31-17 History: Cough. FINDINGS: There are sternotomy wires. Heart is enlarged. Pulmonary vessels are prominent. There are diffuse int erstitial and alveolar opacities along with bilateral pleural effusions. No pneumothorax. IMPRESSION: Congestive heart failure. POS: [facility]
[2018-05-04 12:23] LABS: ALT (SGPT) 8 U/L (8-55); AST (SGOT) 13 U/L (5-34); Albumin 3.5 g/dL (3.4-4.8); Alkaline Phosphatase 53 U/L (40-150); Anion Gap 15 mmol/L (10-20); BUN (Urea Nitrogen) 25 mg/dL (8.4-25.7); Bilirubin, Total 0.3 mg/dL (0.2-1.2); Calc. Creatinine Clearance 0 mL/min (70-130); Calcium 8.8 mg/dL (7.8-10.44); Carbon Dioxide 25 mmol/L (23-31); Chloride 105 mmol/L (98-107); Estimated GFR-MDRD 62; Globulin 3.5 g/dL (2.4-3.5); Glucose 101 mg/dL (83-110); Potassium 4.8 mmol/L (3.5-5.1); Sodium 140 mmol/L (136-145)
[2018-05-04 12:38] LABS: CKMB 3.7 ng/mL (0-6.6); Troponin I 0.044 ng/mL (< 0.028)
== END 2018-05-04 13:27 ==
LOC: NAV ERS 11:08
DX: I11.0 Hypertensive heart disease with heart failure (principal); I50.9 Heart failure, unspecified; I25.10 Atherosclerotic heart disease of native coronary artery without angina pectoris; E10.9 Type 1 diabetes mellitus without complications; F32.9 Major depressive disorder, single episode, unspecified; F03.90 Unspecified dementia, unspecified severity, without behavioral disturbance, psychotic disturbance, mood disturbance, and anxiety; Z87.891 Personal history of nicotine dependence; Z79.899 Other long term (current) drug therapy
CPT/HCPCS: 71045; 80053; 82553; 83880; 84484; 85025; 87804; 93005

== ENCOUNTER 2018-05-13 14:41 | Emergency (ER) | payer MEDICARE, OTHER ==
[2018-05-13 15:33] LABS: #Eosinphils 0.2 thou/uL (0.0-0.7); #Lymphocytes 1.1 thou/uL (1.20-3.40); #Monocytes 0.4 thou/uL (0.11-0.59); #Neutrophils 2.7 thou/uL (1.40-6.50); %Basophils 0.9 % (0.0-1.0); %Eosinophils 3.8 % (0.0-10.0); %Lymphocytes 24.6 % (21.0-51.0); %Monocytes 9.6 % (0.0-10.0); Hemoglobin 9.2 g/dL (14.0-18.0); Mean Corpuscular HGB CONC 31.3 g/dL (32.0-36.0); Mean Platelet Volume 9.7 fL (7.4-10.4); Platelet Count 151 thou/uL (130-400); RBC Distribution Width 12.8 % (11.5-14.5); Red Blood Cell (RBC) Count 2.86 mill/uL (4.70-6.10); White Blood Cell (WBC) Count 4.5 thou/uL (4.8-10.8)
[2018-05-13 15:45] LABS: Anion Gap 15 mmol/L (10-20); BUN (Urea Nitrogen) 38 mg/dL (8.4-25.7); Calc. Creatinine Clearance 0 mL/min (70-130); Calcium 9.1 mg/dL (7.8-10.44); Carbon Dioxide 21 mmol/L (23-31); Chloride 104 mmol/L (98-107); Estimated GFR-MDRD 61; Glucose 128 mg/dL (83-110); Magnesium 1.8 mg/dL (1.6-2.6); Potassium 5.9 mmol/L (3.5-5.1); Sodium 134 mmol/L (136-145)
== END 2018-05-13 18:37 | disposition home or self-care (01) ==
LOC: NAV ERS 14:41
DX: E87.5 Hyperkalemia (principal); E10.9 Type 1 diabetes mellitus without complications; F03.90 Unspecified dementia, unspecified severity, without behavioral disturbance, psychotic disturbance, mood disturbance, and anxiety; I10 Essential (primary) hypertension; Z87.891 Personal history of nicotine dependence; Z86.718 Personal history of other venous thrombosis and embolism; Z79.899 Other long term (current) drug therapy
CPT/HCPCS: 36415; 80048; 83735; 85025; 93005; 94760

== ENCOUNTER 2018-05-16 16:21 | Outpatient (CLI) | payer MEDICARE, OTHER ==
[2018-05-16 17:43] LABS: Potassium 5.5 mmol/L (3.5-5.1)
== END 2018-05-16 16:22 | disposition home or self-care (01) ==
LOC: NAV LABSP 16:21
PROVIDERS: ATTEND Internal Medicine
DX: E87.5 Hyperkalemia (principal)
CPT/HCPCS: 84132

== ENCOUNTER 2018-06-08 14:10 | Outpatient (CLI) | payer MEDICARE, OTHER ==
[2018-06-08 17:24] LABS: Anion Gap 14 mmol/L (10-20); BUN (Urea Nitrogen) 41 mg/dL (8.4-25.7); Calc. Creatinine Clearance 0 mL/min (70-130); Calcium 8.8 mg/dL (7.8-10.44); Carbon Dioxide 23 mmol/L (23-31); Chloride 102 mmol/L (98-107); Estimated GFR-MDRD 56; Glucose 108 mg/dL (83-110); Potassium 5.4 mmol/L (3.5-5.1); Sodium 134 mmol/L (136-145)
== END 2018-06-08 14:11 | disposition home or self-care (01) ==
LOC: NAV LAB 14:10
PROVIDERS: ATTEND Internal Medicine
DX: I10 Essential (primary) hypertension (principal); E10.9 Type 1 diabetes mellitus without complications
CPT/HCPCS: 36415; 80048

== ENCOUNTER 2018-06-17 14:36 | Outpatient (CLI) | payer MEDICARE, OTHER ==
[2018-06-17 15:46] LABS: Anion Gap 15 mmol/L (10-20); BUN (Urea Nitrogen) 31 mg/dL (8.4-25.7); Calc. Creatinine Clearance 0 mL/min (70-130); Calcium 8.9 mg/dL (7.8-10.44); Carbon Dioxide 21 mmol/L (23-31); Chloride 103 mmol/L (98-107); Estimated GFR-MDRD 61; Glucose 166 mg/dL (83-110); Potassium 5.2 mmol/L (3.5-5.1); Sodium 134 mmol/L (136-145)
== END 2018-06-17 14:37 | disposition home or self-care (01) ==
LOC: NAV LABSP 14:36
PROVIDERS: ATTEND Internal Medicine
DX: I11.0 Hypertensive heart disease with heart failure (principal); I50.9 Heart failure, unspecified; E11.9 Type 2 diabetes mellitus without complications
CPT/HCPCS: 36415; 80048

== ENCOUNTER 2018-06-25 08:39 | Outpatient (CLI) | payer MEDICARE ==
[2018-06-25 09:34] LABS: Anion Gap 14 mmol/L (10-20); BUN (Urea Nitrogen) 30 mg/dL (8.4-25.7); Calc. Creatinine Clearance 0 mL/min (70-130); Calcium 9.2 mg/dL (7.8-10.44); Carbon Dioxide 24 mmol/L (23-31); Chloride 104 mmol/L (98-107); Estimated GFR-MDRD 78; Glucose 67 mg/dL (83-110); Potassium 4.9 mmol/L (3.5-5.1); Sodium 137 mmol/L (136-145)
== END 2018-06-25 08:40 | disposition home or self-care (01) ==
LOC: NAV LABSP 08:39
PROVIDERS: ATTEND Internal Medicine
DX: I50.9 Heart failure, unspecified (principal)
CPT/HCPCS: 36415; 80048

== ENCOUNTER 2018-07-09 11:28 | Outpatient (CLI) | payer MEDICARE, OTHER ==
[2018-07-09 12:47] LABS: Anion Gap 13 mmol/L (10-20); BUN (Urea Nitrogen) 43 mg/dL (8.4-25.7); Calc. Creatinine Clearance 0 mL/min (70-130); Calcium 9.1 mg/dL (7.8-10.44); Carbon Dioxide 24 mmol/L (23-31); Chloride 106 mmol/L (98-107); Estimated GFR-MDRD 61; Glucose 138 mg/dL (83-110); Sodium 138 mmol/L (136-145)
== END 2018-07-09 11:29 | disposition home or self-care (01) ==
LOC: NAV LABSP 11:28
PROVIDERS: ATTEND Internal Medicine
DX: I50.9 Heart failure, unspecified (principal)
CPT/HCPCS: 36415; 80048

== ENCOUNTER 2018-08-05 14:19 | Outpatient (CLI) | payer MEDICARE, MEDICAID ==
[2018-08-05 14:52] LABS: Anion Gap 15 mmol/L (10-20); BUN (Urea Nitrogen) 39 mg/dL (8.4-25.7); Calc. Creatinine Clearance 0 mL/min (70-130); Calcium 9.4 mg/dL (7.8-10.44); Carbon Dioxide 20 mmol/L (23-31); Chloride 106 mmol/L (98-107); Estimated GFR-MDRD 66; Glucose 111 mg/dL (83-110); Potassium 5.1 mmol/L (3.5-5.1); Sodium 136 mmol/L (136-145)
[2018-08-05 15:51] LABS: Follow-up Chemistry Comp? YES; Follow-up Result - Chemistry REPORT FAXED
== END 2018-08-05 14:20 | disposition home or self-care (01) ==
LOC: NAV LABSP 14:19
PROVIDERS: ATTEND Internal Medicine
DX: I11.0 Hypertensive heart disease with heart failure (principal); I50.9 Heart failure, unspecified
CPT/HCPCS: 36415; 80048

== ENCOUNTER 2018-12-01 11:38 | Emergency (ER) | payer MEDICARE, OTHER ==
[2018-12-01 12:45] LABS: ALT (SGPT) 9 U/L (8-55); AST (SGOT) 12 U/L (5-34); Albumin 3.3 g/dL (3.4-4.8); Alkaline Phosphatase 40 U/L (40-150); Anion Gap 15 mmol/L (10-20); BUN (Urea Nitrogen) 38 mg/dL (8.4-25.7); Bilirubin, Total 0.2 mg/dL (0.2-1.2); Calc. Creatinine Clearance 0 mL/min (70-130); Carbon Dioxide 24 mmol/L (23-31); Chloride 105 mmol/L (98-107); Estimated GFR-MDRD 64; Globulin 3.4 g/dL (2.4-3.5); Glucose 89 mg/dL (83-110); Potassium 4.2 mmol/L (3.5-5.1); Protein, Total 6.7 g/dL (5.8-8.1); Sodium 140 mmol/L (136-145)
[2018-12-01 12:49] LABS: Bilirubin Negative (Negative); Blood, Urine Moderate (Negative); Glucose, Urine (Dipstick) Negative (Negative); Leukocyte Large (Negative); Nitrite Negative (Negative); Protein, Urine (Dipstick) 100 mg/dL (Neg-Trace); Specific Gravity, Urine 1.015 (1.005-1.030); Urobilinogen 0.2 mg/dL (0.2-1.0)
[2018-12-01 12:54] LABS: Hemoglobin 8.3 g/dL (14.0-18.0); MDiff Complete? YES; Mean Corpuscular HGB CONC 30.8 g/dL (32.0-36.0); Mean Corpuscular Hemoglobin 30.9 pg (27.0-31.0); Mean Platelet Volume 7.1 fL (7.4-10.4); Platelet Count 216 thou/uL (130-400); RBC Distribution Width 12.6 % (11.5-14.5); Red Blood Cell (RBC) Count 2.67 mill/uL (4.70-6.10); White Blood Cell (WBC) Count 4.6 thou/uL (4.8-10.8)
[2018-12-01 12:55] LABS: Anisocytosis SLIGHT = 6-15 cells (100X) (0-5/hpf); Band 2 % (5-11); Hypochromia SLIGHT = 6-15 cells (100X) (0-5/hpf); Lymphocytes 19 % (21-51); Macrocytosis SLIGHT = 6-15 cells (100X) (0-5/hpf); Monocytes 15 % (0-10); Neutrophil 64 % (42-75); Platelet Morphology Comment Appears Adequate
[2018-12-01 13:01] LABS: Bacteria/HPF 4+ HPF (None Seen); Clarity Cloudy (Clear)
--- NOTE | 2018-12-01 13:22 | CT ---
CT PELVIS WITHOUT CONTRAST: DATE: 12/01/2018. PROVIDED CLINICAL HISTORY: Decubitus ulcer with pain. FINDINGS: Comparison is made with the study dated 06/12/2017. There is abnormal soft tissue density present in the region of the cranial aspects of the middle clef t overlying the distal sacrum and coccyx. There are several foci of gas present within this abnormal density, unclear whether these communicate with the more caudal aspects of the jose cleft. There i s an indistinct appearance to the coccyx that may reflect lytic change. There is stranding of the is chial rectal fossa fat as well as the presacral fat. Vascular calcification and IVC filter are noted. Left lower quadrant ostomy again seen. No evidence for fracture. Degenerative changes are seen involving the sacroiliac joints and partially visualize d lower lumbar spine. IMPRESSION: Abnormal appearance to the soft tissues in the region of the cranial aspects of the cleft overl maya the distal sacrum and coccyx, presumably reflecting the provided clinical history of decubitus u lcer. Assessment for fluid collection such as abscess is limited in the absence of IV contrast mater ial. Indistinct appearance to the coccyx may reflect lytic change related to osteomyelitis. Further evaluation with MRI pelvis with and without IV contrast would be useful for further evaluation as cl inically indicated. POS: OFF
[2018-12-01] MEDS ORDERED: Levofloxacin 500 mg/D5W 100 ml Premix Bag ONE (13:56)
== END 2018-12-01 14:12 | disposition short-term general hospital (02) ==
LOC: NAV ERS 11:38
DX: M46.28 Osteomyelitis of vertebra, sacral and sacrococcygeal region (principal); N39.0 Urinary tract infection, site not specified; E11.9 Type 2 diabetes mellitus without complications; F32.9 Major depressive disorder, single episode, unspecified; F03.90 Unspecified dementia, unspecified severity, without behavioral disturbance, psychotic disturbance, mood disturbance, and anxiety; Z87.891 Personal history of nicotine dependence; Z79.899 Other long term (current) drug therapy
CPT/HCPCS: 51701; 72192; 80053; 81003; 81015; 83605; 85025; 86140; 87070; 87077; 87086; 87186; 87205; 96374; J1956

== ENCOUNTER 2018-12-23 13:34 | Outpatient (CLI) | payer MEDICARE, OTHER ==
[2018-12-23 14:07] LABS: Anion Gap 18 mmol/L (10-20); BUN (Urea Nitrogen) 46 mg/dL (8.4-25.7); Calc. Creatinine Clearance 0 mL/min (70-130); Calcium 8.4 mg/dL (7.8-10.44); Carbon Dioxide 22 mmol/L (23-31); Chloride 105 mmol/L (98-107); Estimated GFR-MDRD 62; Glucose 89 mg/dL (83-110); Potassium 3.9 mmol/L (3.5-5.1); Sodium 141 mmol/L (136-145)
== END 2018-12-23 13:35 | disposition home or self-care (01) ==
LOC: NAV LABSP 13:34
PROVIDERS: ATTEND Internal Medicine
DX: I50.9 Heart failure, unspecified (principal)
CPT/HCPCS: 36415; 80048